=== PATIENT | female | born 1970 | race American Indian/Alaskan Native ===

== ENCOUNTER 2016-06-09 17:35 | Inpatient (IN) | payer OTHER ==
--- NOTE | 2016-06-09 18:02 | Emergency Department Report ---
Chief Complaint: Weakness Stated Complaint: SOB/WEAKNESS Time Seen by Provider: 06/09/16 17:57 - HPI History of Present Illness: Patient here complaining and that she is feeling bad for approximately one month. She says she saw her primary care doctor who told her to come to emergency room. She says she's been weak, dizziness, shortness of breath times one month. She says she's having tightness in her upper abdomen area. She says she has no appetite and she's been having vomiting and diarrhea. Patient reports that she lost 170 pounds in one year without trying. Has any urinary burning frequency or urgency. Denies any fever or chills. Patient with multiple medical problems please refer to summary sent from doctor's office. - ROS Review of Systems: All systems are negative unless stated in HPI above. - Exam Vital Signs: Vital Signs 06/09/16 17:36 Temperature 98.1 F Pulse Rate 140 H Respiratory 18 Rate Blood Pressure 136/92 O2 Sat by Pulse 99 Oximetry Physical Exam: General: This is a 45-year-old female who is in mild distress. She appears weak. CV: Tachycardic at 140. S1-S2. Mouth: This membrane and lips are dry. Lungs: Clear to auscultate bilaterally, no rhonchi wheezes or rales. MSE screening note: Focused history and physical exam performed. Due to findings the following was ordered:see [facility] Charge nurse Chris notified the patient needs to be in main ED as soon as possible per Dr. Michael ED Medical Decision Making - Medical Decision Making Medical decision making: Patient seen by provider in triage area. Appropriate protocol activated and patient to main ED to be seen by physician. ED Disposition for MSE Condition: Stable
[2016-06-09 18:52] LABS: Basophils % (Auto) 0.1 % (0.0-1.8); Eosinophils % (Auto) 0.1 % (0.0-4.3); Hematocrit 32.2 % (30.3-42.9); Hemoglobin 10.9 gm/dl (10.1-14.3); Mean Corpuscular HGB Conc 34 % (30-34); Mean Corpuscular Hemoglobin 37 pg (28-32); Mean Corpuscular Volume 109 fl (79-97); Platelet Count 323 K/mm3 (140-440); Red Blood Count 2.94 M/mm3 (3.65-5.03); Red Cell Distribution Width 14.4 % (13.2-15.2); White Blood Count 17.7 K/mm3 (4.5-11.0)
[2016-06-09 19:13] LABS: INR 1.22 (0.87-1.13)
--- NOTE | 2016-06-09 19:16 | Emergency Department Report ---
ED General Adult HPI - General Chief complaint: Weakness Stated complaint: SOB/WEAKNESS Time Seen by Provider: 06/09/16 17:57 Source: patient Mode of arrival: Ambulatory Limitations: No Limitations - History of Present Illness Initial comments: Patient is a 45-year-old female with history of alcohol abuse, depression, diabetes, hyperlipidemia, hypertension presenting today because of generalized weakness 1 month. Patient states that symptoms have been progressive, has been losing weight, has decreased appetite and occasional vomiting and diarrhea. Patient states her last drink was on Monday (5 days ago). Patient denies any recent changes in her medication and denies any suicidal thoughts or attempts to hurt herself by overmedicating. States she has not been drinking alcohol more than usual. No history of travel or having any seafood or IV drug use. Complains about exertional dyspnea, pruritus diffusely especially in the upper abdomen. Had one prior abdominal surgery which was a gastric bypass around 20 years ago. She saw her primary care doctor earlier this week who had called her and told her that based on results that she needs to come to be admitted to the hospital. Patient states she was not told what the abnormalities and the labs were. - Related Data Home Medications Medication Instructions Recorded Confirmed Last Taken AtorvaSTATin [Lipitor] 20 mg PO DAILY 06/09/16 06/09/16 06/06/16 Escitalopram Oxalate [Lexapro] 20 mg PO DAILY 06/09/16 06/09/16 06/06/16 Folic Acid [Folvite] 1 mg PO QDAY 06/09/16 06/09/16 06/06/16 Gabapentin [Neurontin] 100 mg PO Q8HR 06/09/16 06/09/16 06/06/16 LORazepam [Ativan] 0.5 mg PO TID PRN 06/09/16 06/09/16 06/06/16 Lisinopril [Zestril] 20 mg PO QDAY 06/09/16 06/09/16 06/06/16 Propranolol [Inderal] 10 mg PO BID 06/09/16 06/09/16 06/06/16 Venlafaxine Xr [Effexor Xr] 75 mg PO QDAY 06/09/16 06/09/16 06/06/16 busPIRone [Buspar] 10 mg PO TID 06/09/16 06/09/16 06/06/16 metFORMIN [Glucophage] 500 mg PO QDAY 06/09/16 06/09/16 06/06/16 Allergies Allergy/AdvReac Type Severity Reaction Status Date / Time No Known Allergies Allergy Verified 06/09/16 20:19 ED Review of Systems ROS: Stated complaint: SOB/WEAKNESS Other details as noted in HPI Constitutional: malaise, weakness Eyes: denies: eye pain ENT: denies: ear pain Respiratory: cough Cardiovascular: dyspnea on exertion. denies: chest pain Gastrointestinal: abdominal pain, nausea, vomiting, diarrhea Genitourinary: denies: dysuria Skin: denies: rash Neurological: denies: headache Psychiatric: denies: anxiety ED Past Medical Hx - Medications Home Medications: Home Medications Medication Instructions Recorded Confirmed Last Taken Type AtorvaSTATin [Lipitor] 20 mg PO DAILY 06/09/16 06/09/16 06/06/16 History Escitalopram Oxalate [Lexapro] 20 mg PO DAILY 06/09/16 06/09/16 06/06/16 History Folic Acid [Folvite] 1 mg PO QDAY 06/09/16 06/09/16 06/06/16 History Gabapentin [Neurontin] 100 mg PO Q8HR 06/09/16 06/09/16 06/06/16 History LORazepam [Ativan] 0.5 mg PO TID PRN 06/09/16 06/09/16 06/06/16 History Lisinopril [Zestril] 20 mg PO QDAY 06/09/16 06/09/16 06/06/16 History Propranolol [Inderal] 10 mg PO BID 06/09/16 06/09/16 06/06/16 History Venlafaxine Xr [Effexor Xr] 75 mg PO QDAY 06/09/16 06/09/16 06/06/16 History busPIRone [Buspar] 10 mg PO TID 06/09/16 06/09/16 06/06/16 History metFORMIN [Glucophage] 500 mg PO QDAY 06/09/16 06/09/16 06/06/16 History ED Physical Exam - General Limitations: No Limitations General appearance: alert - Head Head exam: Present: atraumatic - Eye Eye exam: Present: other (jaundice) - Cardiovascular Cardiovascular Exam: Present: regular rate, normal heart sounds - GI/Abdominal GI/Abdominal exam: Present: soft, other (upper quadrant mild tenderness, Mijares' s negative, no epigastric tenderness, no rebound, no guarding) - Neurological Exam Neurological exam: Present: alert, oriented X3. Absent: motor sensory deficit - Psychiatric Psychiatric exam: Present: flat affect - Skin Skin exam: Present: intact. Absent: cyanosis ED Course Vital Signs 06/09/16 06/09/16 06/09/16 17:36 18:57 18:59 Temperature 98.1 F Pulse Rate 140 H 132 H Respiratory 18 15 Rate Blood Pressure 136/92 122/83 O2 Sat by Pulse 99 96 100 Oximetry 06/09/16 06/09/16 19:00 19:40 Temperature Pulse Rate 133 H Respiratory 21 18 Rate Blood Pressure 129/85 O2 Sat by Pulse 100 100 Oximetry ED Medical Decision Making - Lab Data Result diagrams: 06/09/16 18:34 06/10/16 00:14 - Medical Decision Making IV, labs, CT of the abdomen and pelvis ordered. Labs show hyperbilirubinemia, hypophosphatemia, hypomagnesemia. CT scan does not show any obstructive process. It does suggest possible pancreatic head swallowing, no clear mass, patient does not have any abdominal pain so acute pancreatitis is unlikely. No signs of acute cholecystitis. We will admit the patient for the above abnormalities Critical care attestation.: If time is entered above; I have spent that time in minutes in the direct care of this critically ill patient, excluding procedure time. ED Disposition Clinical Impression: Hypophosphatemia, Hypomagnesemia, Hyperbilirubinemia Disposition: OP ADMITTED IP TO THIS HOSP Is pt being admited?: Yes Condition: Serious Referrals: PRIMARY CARE, [Primary Care Provider] - 3-5 Days Time of Disposition: 01:08 (Transitioned care to Dr. Barahona)
[2016-06-09 19:56] LABS: Alanine Aminotransferase 43 units/L (7-56); Albumin 3.6 g/dL (3.9-5); Albumin/Globulin Ratio 0.9 %; Alkaline Phosphatase 213 units/L (35-129); Anion Gap 27 mmol/L; Bilirubin,Total 9.2 mg/dL (0.1-1.2); Blood Urea Nitrogen 24 mg/dL (7-17); Calcium 9.2 mg/dL (8.4-10.2); Carbon Dioxide 23 mmol/L (22-30); Chloride 85.5 mmol/L (98-107); Glucose 111 mg/dL (65-100); Lactate Dehydrogenase 500 units/L (91-180); Magnesium 1.6 mg/dL (1.7-2.3); Sodium 132 mmol/L (137-145); Total Protein 7.8 g/dL (6.3-8.2)
[2016-06-09 19:58] LABS: Phosphorous 0.8 mg/dL (2.5-4.5)
[2016-06-09 20:06] LABS: Creatine Kinase 43 units/L (30-135)
--- NOTE | 2016-06-09 20:17 | Admit Criteria Form ---
Admission Criteria Documentation: GENERAL ADMISSION CRITERIA (Place 'X' for any and all applicable criteria): Admission is indicated for ANY ONE of the following: [ ]I. Hemodynamic instability as indicated by ANY ONE of the following(1)(2) (3)(4)(5): [ ]a) Vital sign abnormality not readily corrected by appropriate treatment within 12 to 24 hours indicated by ANY ONE of the following: [ ]i) Hypotension [ ]ii) Symptomatic Tachycardia unresponsive to treatment (eg , analgesia, fluids, sedation as indicated) [ ]iii) Orthostatic vital sign changes unresponsive to treatment (eg, fluids) [ ]b) Vital sign abnormality that is severe indicated by ANY ONE of the following: [ ]i) Inadequate perfusion indicated by ANY ONE of the following: [ ]1) Lactic acidosis (greater than 2 mmol/L) [ ]2) New abnormal capillary refill (greater than 3 seconds) [ ]3) Other metabolic acidosis (arterial pH less than 7.35) not otherwise explained [ ]4) Reduced urine output [ ]5) Altered mental status [ ]6) Myocardial Ischemia [ ]v) Mean arterial pressure[A] less than 60 mm Hg [ ]vi) Mean arterial pressure[A] less than 70 mm Hg after 30 minutes of appropriate treatment (eg, fluid resuscitation) [ ]vii) IV inotropic or vasopressor medication required to maintain adequate blood pressure or perfusion [ ]viii) Sustained heart rate greater than 120 beats per minute in adult or child 6 years or older[B]] [ ]II. Hypertension requiring inpatient treatment as indicated by ANY ONE of the following(6)(7)(8): [ ]a) SBP greater than 220 mm Hg or DBP greater than 120 mm Hg despite treatment [ ]b) SBP greater than 140 mm Hg or DBP greater than 100 mm Hg with evidence of acute end organ damage as indicated by ANY ONE of the following: [ ]i) Encephalopathy [ ]ii) Acute renal failure as indicated by new onset of ANY ONE of the following(9)(10)(11)(12)(13): [ ]1) A 3-fold rise in serum creatinine from baseline [ ]2) Serum creatinine greater than 4 mg/dL ( 354 micromoles/L) with acute rise greater than 0.5 mg/dL (44.2 micromoles/L) [ ]3) Reduction of more than 75% in estimated glomerular filtration rate from baseline [ ]4) Estimated glomerular filtration rate less than 35 mL/min/1.73m2 (0.59 mL/sec/1.73m2) in child up to 18 years of age [ ]5) Cessation of urine output indicated by ALL of the following: [ ]A. Adequate volume status [ ]B. Inadequate urine output as indicated by ANY ONE of the following: [ ]a. Urine output less than 0.3 mL/kg/hr for 24 hours [ ]b. Anuria (urine output less than 0.1 mL/kg/hr) for 12 hours [ ]iii) Aortic dissection [ ]iv) Myocardial ischemia [ ]v) Left ventricular heart failure [ ]vi) Retinal hemorrhage [ ]vii) Other significant finding [ ]c) Hypertension in child requiring inpatient treatment as indicated by ALL of the following(14)(15)(16): [ ]i) Outpatient treatment not effective, not available, or not appropriate [ ]ii) SBP or DBP greater than 95th percentile for age [ ]iii) Evidence of acute end organ damage as indicated by ANY ONE of the following: [ ]1) Altered mental status [ ]2) Acute renal failure as indicated by new onset of ANY ONE of the following(9)(10)(11)(12)(13): [ ]A. A 3-fold rise in serum creatinine from baseline [ ]B. Serum creatinine greater than 4 mg/dL (354 micromoles/L) with acute rise greater than 0.5 mg/dL (44.2 micromoles/L) [ ]C. Reduction of more than 75% in estimated glomerular filtration rate from baseline [ ]D. Estimated glomerular filtration rate less than 35 mL/min/1.73m2 (0.59 mL/sec/1.73m2)in child up to 18 years of age [ ]E. Cessation of urine output indicated by ALL of the following: [ ]a. Adequate volume status [ ]b. Inadequate urine output as indicated by ANY ONE of the following: [ ]1) Urine output less than 0.3 mL/kg/hr for 24 hours [ ]2) Anuria (urine output less than 0.1 mL/kg/hr) for 12 hours [ ]3) Severe headache [ ]4) Visual disturbance [ ]5) Retinal hemorrhage [ ]6) Other significant finding [ ]III. Acute cardiac or peripheral ischemia as indicated by ANY ONE of the following: [ ]a) Acute coronary syndrome(17)(18) [ ]b) Acute peripheral ischemia (eg, pulseless, cool, mottled, or cyanotic extremity)(19) [ ]IV. Cardiac arrhythmias or findings of immediate concern indicated by ANY ONE of the following(20)(21): [ ]a) Heart rhythms that are inherently dangerous or unstable indicated by ANY ONE of the following(22)(23)(24): [ ]i) Resuscitated ventricular fibrillation or cardiac arrest [ ]ii) Ventricular escape rhythm [ ]iii) Sustained ventricular tachycardia (30 seconds or more of ventricular rhythm at greater than 100 beats per minute) [ ]iv) Nonsustained ventricular tachycardia and ANY ONE of the following: [ ]1) Suspected cardiac ischemia as cause or consequence of ventricular tachycardia [ ]2) In setting of acute myocarditis [ ]b) Unstable cardiac conduction defects indicated by ANY ONE of the following(24)(25)(26): [ ]i) Type II second-degree atrioventricular block [ ]ii) Third-degree atrioventricular block [ ]iii) New-onset left bundle branch block with suspected myocardial ischemia [ ]c) Any heart rhythm and ANY ONE of the following(22)(23)(27)(28)( 29): [ ] i) Continuous long-term ECG monitoring needed (eg, initiation of drug requiring monitoring for more than 24 hours) [ ] ii) Patient has automatic implanted cardioverter defibrillator that is repeatedly firing, malfunctioning, or in need of immediate adjustment of settings beyond the scope of ambulatory or observation care. [ ]d) Heart rhythms of concern due to ANY ONE of the following: [ ]i) Hypotension [ ]ii) Respiratory distress [ ]iii) Association with other significant symptoms (eg, bradycardia with syncope or ongoing dizziness, supraventricular tachycardia with chest pain) (27)(28) (30) [ ] V. Severe heart failure as indicated by ANY ONE of the following ( 31)(32): [ ]a) Respiratory distress [ ]b) Hypotension [ ]c) Anasarca (refractory to outpatient therapy) [ ]d) Cardiac arrhythmias of immediate concern [ ]e) Myocardial ischemia [ ]. Respiratory abnormalities, including ANY ONE of the following(33)(34) (35)(36): [ ]a) Respiratory rate greater than 30 breaths per minute unresponsive to treatment [A] [ ]b) New saturation of arterial oxygen less than 90% [ ]c) New partial pressure of carbon dioxide greater than 44 mm Hg ( 5.9 kPa) [ ]d) Supplemental oxygen or respiratory treatments needed that are new or not performable at other levels of care [ ]e) New-onset cyanosis [ ]f) Inability to protect airway [ ]g) Chronic lung disease with severe deterioration (not responsive to emergency and observation care treatment as appropriate) as indicated by ANY ONE of the following(34)(36 ): [ ]i) SaO2 5% below baseline in patient with chronic hypoxemia [ ]ii) New requirement for supplemental oxygen to keep SaO2 at baseline or acceptable level [ ]iii) Required supplemental oxygen performable only in acute inpatient setting [ ]iv) Severe airflow or ventilation abnormalities [ ]v) Previously mobile patient unable to walk between rooms [ ]vi Inability to eat or sleep due to dyspnea [ ]vii) Rapid rate of exacerbation onset [ ]viii) Altered mental status ]VII. Severe airflow or ventilation abnormalities (not responsive to emergency and observation care treatment as appropriate) as indicated by ANY ONE of the following(33)(34)(35)(37): [ ]a) PCO2 greater than 42 mm Hg (5.6 kPa) and pH less than 7.35 (new ) [ ]b) Documented PCO2 increased more than 5 mm Hg (0.7 kPa) from disease baseline [ ]c) Airflow measurements [B] less than 60% of previous best or predicted (eg, peak expiratory flow rate less than 300 L/minute) despite intensive emergent treatment [C] [ ]d) Required respiratory treatments that are performable only in acute inpatient setting [ ]VIII. Impending or actual respiratory arrest ( Also use Respiratory Failure GRG for severe respiratory disease and long-term mechanical ventilation patients) [ ]IX. Neurologic abnormalities, including ANY ONE of the following: [ ]a) New findings that suggest ANY ONE of the following: [ ]i) [employer]UC[employer] infection(38) [ ]ii) Cerebral bleeding, ischemia, or vasospasm(39)(40) [ ]iii) Increased intracranial pressure, hydrocephalus, or cerebral edema(41)(42)(43) [ ]iv) Spinal cord injury(44) [ ]b) Uncontrolled seizures(45) [ ]c) New-onset coma (eg, [place] coma scale score less than 9) or unexplained abnormal mental status (eg, [place] coma scale score less than 14) [D](41)(46)(47) [ ]X. New-onset severe neurologic findings requiring inpatient care; examples include(42)(48)(49): [ ]a) Papilledema [ ]b) Cerebral edema [ ]c) Mass effect on CT scan [ ]XI. Suspected acute intra-abdominal process with peritoneal signs, abdominal mass, or similar findings (50)(51)(52) [ ]XII. Severe physiologic disorder remaining after emergency or observation level care (as appropriate) as indicated by ANY ONE of the following (53): [ ]a) Significant dehydration [ ]b) Diabetic ketoacidosis [ ]c) Hyperglycemic hyperosmolar state (eg, osmolality greater than 320 mOsm/kg (mmol/kg) [ ]d) Hypoglycemia [ ]e) Other (new) acid-base disorder with pH less than 7.35 or greater than 7.5(54) [ ]f) Thyroid storm (55) [ ]g) Myxedema coma (55) [ ]XIII. Abdominal abnormalities with ANY ONE of the following(56)(57): [ ]a) Absent bowel sounds with complete ileus [ ]b) Signs of intestinal obstruction or peritonitis [E] [ ]c) Nausea and vomiting that cannot be controlled with outpatient or observation care [ ]XIV. Acute renal failure as indicated by new onset of ANY ONE of the following(9)(10)(11)(12)(13): [ ]a) A 3-fold rise in serum creatinine from baseline [ ]b) Serum creatinine greater than 4 mg/dL (354 micromoles/L) with acute rise greater than 0.5 mg/dL (44.2 micromoles/L) [ ]c) Reduction of more than 75% in estimated glomerular filtration rate from baseline [ ]d) Estimated glomerular filtration rate less than 35 mL/min/ 1.73m2 (0.59 mL/sec/1.73m2) in child up to 18 years of age [ ]e) Cessation of urine output indicated by ALL of the following: [ ]i) Adequate volume status [ ]ii) Inadequate urine output as indicated by ANY ONE of the following: [ ]1) Urine output less than 0.3 mL/kg/hr for 24 hours [ ]2) Anuria (urine output less than 0.1 mL/kg/hr) for 12 hours [ ]XV. Significant uremic complications as indicated by ANY ONE of the following(58)(59)(60): [ ]a) Outpatient therapy is ineffective or not feasible for ANY ONE of the following: [ ]i) Severe heart failure [ ]ii) Severehypertension [ ]iii) Pleural effusion [ ]iv) Pericarditis or pericardial effusion [ ]b) Cardiac arrhythmias of immediate concern [ ]c) Intractable nausea or vomiting [ ]d) Recurrent seizures [ ]e) Encephalopathy [ ]f) Bleeding abnormalities (eg, platelet dysfunction) with active (eg, gastrointestinal) bleeding [ ]g) Dialysis indicated before long-term access or ambulatory arrangements can be made [ ]h) Significant metabolic or electrolyte abnormalities (eg, severe acidosis or hyperkalemia) [ ]XVI. High fever or other high-risk infection situation as indicated by ANY ONE of the following(61)(62)(63)(64): [ ]a) Outpatient and observation care antimicrobial treatment unavailable, not effective, or not appropriate [ ]b) Documented bacteremia [ ]c) Temperature greater than 40.5 degrees C (104.9 degrees F) ( oral) [ ]d) Temperature greater than 39.5 degrees C (103.1 degrees F) ( oral) or less than 36 degrees C (96.8 degrees F) (rectal) that does not respond to e treatment and observation care [ ] XVII. Temperature less than 95 degrees F (35 degrees C)(rectal)(65) [ ] XVIII. Severe nutritional abnormalities as indicated by ALL of the following (66)(67): [ ]a) Inability to tolerate or establish sufficient oral or other enteral nutrition in outpatient setting [ ]b) Parenteral nutrition regimen need that must be implemented on inpatient basis [X ] XIX. Severe electrolyte abnormalities indicated by ALL of the following(68 )(69)(70): [X ]a) Electrolytes and associated findings are not as expected for patient baseline or acceptable treatment effects. [ X]b) Severe abnormalities indicated by ANY ONE of the following: [X ]i) Sodium less than 130 mEq/L (mmol/L) (new) [ ]ii)Sodium less than 135 mEq/L (mmol/L) with ANY ONE of the following: [ ]1) Uncorrectable (to near normal or chronic baseline) after trial of outpatient and emergency treatment [ ]2) Altered mental status [ ]3) Seizures [ ]4) Severe medical etiology requiring inpatient management (eg, heart failure, hypovolemia) [ ]iii) Sodium greater than 155 mEq/L (mmol/L) [ ]iv) Sodium greater than 150 mEq/L (mmol/L) with ANY ONE of the following: [ ]1) Uncorrectable (to near normal or chronic baseline) with outpatient and emergency treatment [ ]2) Altered mental status [ ]3) Seizures [ ]4) Severe medical etiology (eg, hypovolemia, diabetes insipidus) [ ]v) Potassium less than 2.5 mEq/L (mmol/L) despite outpatient and emergency treatment [ ]vi) Potassium less than 3 mEq/L (mmol/L) with ANY ONE of the following: [ ]1) Weakness [ ]2) Cardiac abnormality (eg, arrhythmia, conduction disturbance) [ ]3) Cardiac ischemia [ ]4) Ileus [ ]5) Ongoing medical cause requiring inpatient management (eg, acute renal wasting or SIADH) [ ]6) Other severe symptoms [ ]vii) Potassium greater than 6.5 mEq/L (mmol/L) [ ]viii) Potassium greater than 5 mEq/L (mmol/L) with ANY ONE of the following: [ ]1) Uncorrectable (to near normal or chronic baseline) with outpatient and emergency treatment [ ]2) Severe ECG findings [F] [ ]3) Acute worsening of renal failure (creatinine greater than 2.5 mg/dL (221 micromoles/L) or significant elevation for age and size) [ ]4) Severe weakness [ ]5) Severe medical etiology (eg, hemolysis, infection, drug overdose) [ ]ix) Calcium less than 7 mg/dL (1.75 mmol/L) despite outpatient and emergency treatment (72) [ ]x) Calcium less than 8 mg/dL (2 mmol/L) with significant symptoms or findings; examples include(72): [ ]1) Altered mental status [ ]2) Muscle spasms [ ]3) Seizures [ ]4) Breathing difficulty [ ]5) Cardiac abnormality (eg, arrhythmia or conduction disturbance) [ ]xi) Calcium greater than 14 mg/dL (3.5 mmol/L)(72) [ ]xii) Calcium greater than 12 mg/dL (3 mmol/L) with ANY ONE of the following(72): [ ]1) Uncorrectable (to near normal or chronic baseline) with outpatient and emergency treatment [ ]2) Significant dehydration or hypovolemia as indicated by ALL of the following(70)(73)(74): [ ]A. Not resolved with initial treatments [ ]B. Clinically significant dehydration as indicated by ANY ONE of the following: [ ]a. Vomiting refractory to outpatient treatment (ie, precluding oral rehydration) [ ]b. Inability to drink [ ]c. Hypernatremia or other electrolyte abnormality unable to be corrected with outpatient and emergency treatment [ ]d. Failure to remain hydrated with outpatient therapy [ ]e. Reduced urine output [ ]f. Hypotension [ ]g. Serious cause for dehydration requiring acute hospitalization (eg, bowel obstruction, increased intracranial pressure, infectious cause) [ ]h. Child with ANY ONE of the following(75): [ ]1) Severe abdominal tenderness [ ]2) Adequate care not available at home [ ]3) Severe dehydration ( greater than 9% loss of body weight) [ ]4) Significant symptoms or findings; examples include: [ ]A. Altered mental status [ ]B. Cardiac abnormality (eg, arrhythmia, conduction disturbance) [ ]C. Malignant etiology requiring inpatient treatment [X ]xiii) Phosphorus less than 1 mg/dL (0.32 mmol/L) [ ]xiv) Phosphorus less than 1.5 mg/dL (0.48 mmol/L) with ANY ONE of the following: [ ]1) Patient unresponsive to outpatient and emergency treatment [ ]2) Significant symptoms or findings; examples include: [ ]A. Weakness [ ]B. Altered mental status [ ]C. Breathing difficulty [ ]D. Seizures [ ]E. Rhabdomyolysis [ ]xv) Phosphorus greater than 10 mg/dL (3.2 mmol/L) [ ]xvi) Phosphorus greater than 4.5 mg/dL (1.45 mmol/L) (new) with ANY ONE of the following: [ ]1) Severe medical etiology (eg, crush injury, acute renal failure) [ ]2) Associated hypocalcemia with significant findings; examples include: [ ]A. Neurologic symptoms [ ]B. Altered mental status [ ]C. Muscle spasms [ ]D. Seizures [ ]E. Breathing difficulty [ ]F. Cardiac abnormality (eg, arrhythmia, conduction disturbance) [ ]xvii) Magnesium less than 1 mg/dL (0.41 mmol/L) [ ]xviii) Magnesium less than 1.5 mg/dL (0.62 mmol/L) with ANY ONE of the following: [ ]1) Patient unresponsive to outpatient and emergency treatment [ ]2) Associated hypocalcemia with significant findings; examples include: [ ]A. Altered mental status [ ]B. Muscle spasms [ ]C. Seizures [ ]D. Breathing difficulty [ ]E. Cardiac abnormality (eg, arrhythmia , conduction disturbance) [ ]3) Associated hypokalemia (potassium less than 3 mEq/L (mmol/L)) with risk of arrhythmia [ ]xix) Magnesium greater than 4 mEq/L (2 mmol/L) [ ]xx) Magnesium greater than 2.5 mEq/L (1.25 mmol/L) with significant symptoms or findings; examples include: [ ]1) Weakness [ ]2) Altered mental status [ ]3) Cardiac abnormality (eg, arrhythmia, conduction disturbance) [ ]4) Breathing difficulty [ ]5) Severe medical etiology (eg, renal failure, hypovolemia) [ ]xxi) Uric acid greater than 20 mg/dL (1190 micromoles/L)(76) [ ]xxii) Uric acid greater than 8 mg/dL (476 micromoles/L) with significant symptoms or findings of tumor lysis syndrome; examples include(76): [ ]1) Creatinine greater than 1.5 times upper limit of normal [ ]2) Cardiac abnormality (eg, arrhythmia, conduction disturbance) [ ]3) Seizure [ ]XX. Acute blood loss causing significant abnormality as indicated by ANY ONE of the following(77)(78): [ ]a) Hemoglobin less than 10 g/dL (100 g/L) (not baseline) [ ]b) Hematocrit less than 30% (0.30) (not baseline) [ ]c) Repeat hematocrit decreased more than 2% (0.02) [ ]d) Uncontrolled bleeding [ ]XXI. Severe anemia indicated by ANY ONE of the following(78)(79): [ ]a) Altered mental status [ ]b) Chest pain [ ]c) Exertional dyspnea [ ]d) Syncope [ ]e) Other findings suggesting inadequate perfusion [ ]f) Treatment with transfusion or volume replacement is ineffective at resolving ANY ONE of the following [G]: [ ]i) Tachycardia for age [ ]ii) Orthostatic vital sign changes as indicated by ANY ONE of the following(80): [ ]1) Fall in SBP of 20 mm Hg or more 1 to 3 minutes after patient sits or stands from recumbent position [ ]2) Fall in DBP of 10 mm Hg or more 1 to 3 minutes after patient sits or stands from recumbent position [ ]XXII. High-risk low platelet count as indicated by ANY ONE of the following( 81)(82): [ ]a) Severe or life-threatening bleeding (eg, intracranial, major gastrointestinal, or extensive mucosal bleeding), with any reduced platelet count [ ]b) Platelet count less than 20,000/mm3 (20 x109/L) with any active bleeding [ ]c) Platelet count less than 10,000/mm3 (10 x109/L) with minor purpura or petechiae [ ]d) Platelet count less than 5000/mm3 (5 x109/L) [ ]e) Low platelet count with hemolytic anemia [ ]XXIII. Disseminated intravascular coagulation(77)(83) [ ]XXIV. Severe adverse drug or systemic toxin reaction requiring inpatient treatment; examples include(84)(85): [ ]a) Serotonin syndrome(86) [ ]b) Neuroleptic malignant syndrome(86) [ ]c) Cholinergic syndrome with severe symptoms (eg, bronchorrhea, weakness, mental status changes, seizures) [ ]d) Sympathetic syndrome with severe symptoms (eg, seizures, mental status changes, cardiac dysrhythmias) [ ]e) Anticholinergic syndrome [ ]XXV. Severe pain requiring acute inpatient management as indicated by ALL of the following (87)(88)(89): [ ]a) Continuous or frequent (eg, every 2 to 4 hours) parenteral analgesics required [H] [ ]b) Rapid improvement expected from treatment or acute intervention (eg, surgery, anesthesia procedure) [ ]XXVI.Severe behavioral health issues judged unmanageable at a lower level of care (eg, residential) in a patient who is ANY ONE of the following(91) [ ]a) Acutely suicidal [ ]b) A danger to self (eg, self-mutilating or suicidal behavior) [ ]c) A danger to others (eg, assaultive or homicidal behavior) [ ]d) Incapacitated because of grave disability (eg, inability to provide for self at lower level of care) (92) [ ]XXVII. Inpatient monitoring needed; examples include(1)(3)(87)(93)(94)(95)(96 ): [ ]a) Vital signs, neurologic signs, or vascular checks more frequently than every 4 hours [ ]b) Cardiac or respiratory monitoring beyond the scope (eg, over 24 hours) of observation care [ ]c) Pulmonary artery catheter monitoring [ ]d) Suspected compartment syndrome(97) (98) [ ]e) Cerebral bleeding, hydrocephalus, or vasospasm monitoring [ ]f) Increased intracranial pressure or cerebral edema monitoring [ ]g) monitoring [ ]XXVIII. Treatment requiring inpatient care; examples include: [ ]a) IV fluid to replace significant ongoing losses (greater than 3 L/m2 per day)(53) [ ]b) High concentration oxygen (greater than 40%)(33)(99)(100) [ ]c) Frequent respiratory therapy (more frequently than every 4 hours) to maintain airflow rates greater than 60% of baseline(33)(99)(100) [ ]d) Epidural analgesia(87) [ ]e) IV anticoagulation, vasoactive, or antiarrhythmic medication(19 )(23) [ ]f) Acute thrombolytics (generally require 24 hours of observation )(101)(102) [ ]XXIX. Emergency procedures needed; examples include: [ ]a) Emergency inpatient surgery [ ]b) Temporary pacemaker placement(103) [ ]c) Chest tube placement with active evacuation (eg, suction, drainage)(104) [ ]d) Emergent cardioversion(105) [ ]e) Emergent cardiac or vascular procedures (eg, cardiac catheterization, angioplasty) (17)(18) [ ]f) Emergent dialysis access placement and institution(10)(106) [ ]g) Emergent pericardiocentesis(107) [ ]h) Emergent plasmapheresis or leukapheresis(83) [ ]i) Emergent tracheostomy The original [employer] content created by [employer] has been revised. The portions of the content which have been revised are identified through the use of italic text or in bold, and [employer] has neither reviewed nor approved the modified material. All other unmodified content is copyright [employer]. Please see references footnoted in the original [employer] edition 2016 Admission Criteria Met: Yes
[2016-06-09] MEDS ORDERED: KPHOS 30 MMOL in NACL 0.9% 500 ML 500 ML IV ONE (20:18)
[2016-06-09 20:23] LABS: Creatine Kinase MB < 1.0 ng/mL (0.0-4.0)
[2016-06-09] MEDS ORDERED: NACL 0.9% 1000 ML IV STA (20:53)
[2016-06-09] MEDS ORDERED: NACL ONE (21:42)
--- NOTE | 2016-06-10 00:24 | Cat Scan Report ---
FINAL REPORT PROCEDURE: CT ABDOMEN PELVIS W CON TECHNIQUE: Computerized axial tomography of the abdomen and pelvis was performed after the IV injection of iodinated nonionic contrast. HISTORY: ro mass for obstructive jaundice COMPARISON: No prior studies are available for comparison. FINDINGS: Visualized lower thorax: No significant abnormality. Liver: Liver is enlarged and fatty. There is no discrete mass.. Spleen: Normal size and attenuation. Gallbladder and biliary system: There is no biliary ductal dilatation or evidence of biliary obstruction. There may be sludge in the gallbladder. There is no evidence of cholecystitis. There are no gallstones.. Pancreas: There is peripancreatic edema which could indicate early pancreatitis. There are adjacent reactive lymph nodes. There is no mass or pseudocyst. Correlation with amylase and lipase levels may be helpful. There is a 2 centimeter area of vague decreased density in the pancreatic head which is felt to be edema. Possibility of mass is considered unlikely.. Adrenals: Normal. Kidneys: Normal. GI tract: There has been gastric bypass surgery. There is no bowel obstruction, colitis or enteritis. The appendix is normal.. Lymph nodes and mesentery: Normal. Vasculature: Normal. Bladder: Normal. Reproductive organs: Uterus and ovaries are within normal limits.. Peritoneum: There is no ascites, free air, abscess or adenopathy.. Musculoskeletal structures: No significant abnormality. Other: None. IMPRESSION: Liver is enlarged and fatty. There is no discrete mass.. There is no biliary ductal dilatation or evidence of biliary obstruction. There may be sludge in the gallbladder. There is no evidence of cholecystitis. There is a 2 centimeter area of vague decreased density in the pancreatic head which is felt to be edema. Possibility of mass is considered unlikely.. There is peripancreatic edema which could indicate early pancreatitis. There are adjacent reactive lymph nodes. There is no mass or pseudocyst. Correlation with amylase and lipase levels may be helpful.. There has been gastric bypass surgery. There is no bowel obstruction, colitis or enteritis. The appendix is normal.. There is no ascites, free air, abscess or adenopathy..
[2016-06-10 00:34] LABS: Bacteria,Urine 4+ /HPF (Negative); Bilirubin,Urine SM (Negative); Blood,Urine NEG (Negative); Ketones,Urine TR mg/dL (Negative); Leukocyte Esterase,Urine SM (Negative); Mucus,Urine 3+ /HPF; Nitrite,Urine NEG (Negative)
[2016-06-10] MEDS ORDERED: MAGNESIUM SULFATE 2GM/50ML 50 ML IV ONE ×2 (01:02→11:00)
[2016-06-10 01:05] LABS: BUN/Creatinine Ratio 38.33; Bilirubin,Direct 5.4 mg/dL (0-0.2); Bilirubin,Indirect 2.8 mg/dL; Bilirubin,Total 8.2 mg/dL (0.1-1.2); Blood Urea Nitrogen 23 mg/dL (7-17); Calcium 8.5 mg/dL (8.4-10.2); Carbon Dioxide 24 mmol/L (22-30); Glucose 95 mg/dL (65-100); Sodium 127 mmol/L (137-145)
[2016-06-10 01:11] LABS: Anion Gap 22 mmol/L
[2016-06-10 01:16] LABS: Potassium 2.9 mmol/L (3.6-5.0)
[2016-06-10] MEDS ORDERED: ATIVAN ONE (02:32)
--- NOTE | 2016-06-10 02:36 | Ultrasound Report ---
FINAL REPORT PROCEDURE: US ABDOMEN LIMITED TECHNIQUE: Real-time sonography in multiple planes of the gallbladder fossa and CBD with imaging of the adjacent liver, pancreas, and right kidney was performed with image documentation. CPT 61984 HISTORY: hyperbilirubinemia COMPARISON: No prior studies are available for comparison. FINDINGS: Liver: There is fatty infiltration of the liver.. Gallbladder: There is an echogenic mass in the gallbladder suggesting stone or sludge. There is no wall thickening or pericholecystic fluid.. Intrahepatic bile ducts: Normal . Extrahepatic bile ducts: Normal . Pancreas: Pancreas is obscured by bowel gas.. Right kidney: Normal echotexture. No focal renal mass, calculus, or hydronephrosis. Other: No free fluid. IMPRESSION: There is fatty infiltration of the liver.. There is an echogenic mass in the gallbladder suggesting stone or sludge. There is no wall thickening or pericholecystic fluid.. There is no demonstrated evidence of cholecystitis. There is no biliary ductal dilatation. Pancreas is obscured by bowel gas..
[2016-06-10] MEDS ORDERED: ATIVAN IV ONE (02:43)
[2016-06-10] MEDS ORDERED: ATIVAN IV PRN ×2 (03:27)
--- NOTE | 2016-06-10 03:31 | History and Physical Report ---
History of Present Illness Date of examination: 06/10/16 History of present illness: 45-year-old woman history of hypertension, diabetes, depression, anxiety, alcohol abuse comes emergency room with complaints of abdominal pain. Pain is in the right upper, mid and lower abdomen which she describes as a hurting pain , intensity, 5/10, no radiation, better with pain medication in the emergency room, cannot identify exacerbating factor. She admits to nausea vomiting, shortness of breath, generalized weakness. She states she's been experiencing generalized weakness for one month. Her last drink was one week ago Patient denies chest pain, palpitation, cough, hematochezia, dysuria, frequency, focal weakness, dysarthria, fever chills, polydipsia polyuria, hot or cold intolerance, easy bruisability, or rash or bleeding from mucosal membrane, rhinorrhea, epistaxis, earache, tinnitus, blurry vision, eye discharge , anxiety, depression. Other review of systems negative PAST SURGICAL HISTORY: Gastric bypass SOCIAL HISTORY: Drinks 2 glasses of vodka with orange juice a day, no tobacco or drugs FAMILY HISTORY: Hypertension Medications and Allergies Allergies Allergy/AdvReac Type Severity Reaction Status Date / Time No Known Allergies Allergy Verified 06/09/16 20:19 Home Medications Medication Instructions Recorded Confirmed Last Taken Type AtorvaSTATin [Lipitor] 20 mg PO DAILY 06/09/16 06/09/16 06/06/16 History Escitalopram Oxalate [Lexapro] 20 mg PO DAILY 06/09/16 06/09/16 06/06/16 History Folic Acid [Folvite] 1 mg PO QDAY 06/09/16 06/09/16 06/06/16 History Gabapentin [Neurontin] 100 mg PO Q8HR 06/09/16 06/09/16 06/06/16 History LORazepam [Ativan] 0.5 mg PO TID PRN 06/09/16 06/09/16 06/06/16 History Lisinopril [Zestril TAB] 20 mg PO QDAY 06/09/16 06/09/16 06/06/16 History Propranolol [Inderal] 10 mg PO BID 06/09/16 06/09/16 06/06/16 History Venlafaxine Xr [Effexor XR] 75 mg PO QDAY 06/09/16 06/09/16 06/06/16 History busPIRone [Buspar] 10 mg PO TID 06/09/16 06/09/16 06/06/16 History metFORMIN [Glucophage] 500 mg PO QDAY 06/09/16 06/09/16 06/06/16 History HYDROcodone/APAP 5-325 [[place] 1 each PO Q8H PRN #15 tablet 06/12/16 Unknown Rx 5/325] Active Meds: Active Medications Ceftriaxone Sodium (Rocephin/Ns 1 Gm/50 Ml) 50 mls @ 100 mls/hr IV Q24HR MARLEE Lorazepam (Ativan) 2 mg IV Q1HR PRN PRN Reason: [facility]-Ar 8 Lorazepam (Ativan) 4 mg IV Q1HR PRN PRN Reason: [facility]-Ar 16 Exam - Physical Exam Narrative exam: Gen. appearance: Patient lying in bed, no apparent distress HEENT: Normocephalic, atraumatic, pupils equally round and reactive to light, extraocular movement intact, and positive sclericterus,. No JVD or thyromegaly or nodule,neck supple, no carotid bruit ,mucous membranes moist, no exudate or erythema Heart: S1, S2, regular rate and rhythm Lungs: Clear to auscultation bilaterally, breathing comfortable Abdomen: Positive bowel sounds, nontender, nondistended, no organomegaly Extremity: No edema, cyanosis, clubbing Skin: No rash, nodules, warm, dry Neuro: Oriented 3, cranial nerves II-12 intact, speech is fluent, motor and sensory intact - Constitutional Vitals: Temp Pulse Resp BP Pulse Ox 98.1 F 118 H 16 111/66 100 06/09/16 17:36 06/10/16 01:00 06/10/16 01:00 06/10/16 01:00 06/10/16 01:00 Results - Labs CBC & Chem 7: 06/11/16 05:11 06/12/16 07:12 Labs: Abnormal lab results 06/09/16 06/09/16 06/09/16 Range/Units 00:14 18:34 18:34 WBC 17.7 H (4.5-11.0) K/mm3 RBC 2.94 L (3.65-5.03) M/mm3 MCV 109 H (79-97) fl MCH 37 H (28-32) pg [place] % (Auto) 10.6 H (0.0-7.3) % [place] # 1.9 H (0.0-0.8) K/mm3 Seg Neutrophils % 74.7 H (40.0-70.0) % Seg Neutrophils # 13.2 H (1.8-7.7) K/mm3 PT 15.3 H (12.2-14.9) Sec. INR 1.22 H (0.87-1.13) Sodium (137-145) mmol/L Potassium (3.6-5.0) mmol/L Chloride (98-107) mmol/L BUN (7-17) mg/dL Creatinine (0.7-1.2) mg/dL Glucose (65-100) mg/dL Phosphorus (2.5-4.5) mg/dL Magnesium (1.7-2.3) mg/dL Total Bilirubin (0.1-1.2) mg/dL Direct Bilirubin (0-0.2) mg/dL AST (5-40) units/L Alkaline Phosphatase (35-129) units/L Lactate Dehydrogenase (91-180) units/L Albumin (3.9-5) g/dL Lipase 277 H (13-60) units/L Urine WBC (Auto) (0.0-6.0) /HPF Salicylates (2.8-20.0) mg/dL 06/09/16 06/09/16 06/09/16 Range/Units 18:37 19:29 Unknown WBC (4.5-11.0) K/mm3 RBC (3.65-5.03) M/mm3 MCV (79-97) fl MCH (28-32) pg [place] % (Auto) (0.0-7.3) % [place] # (0.0-0.8) K/mm3 Seg Neutrophils % (40.0-70.0) % Seg Neutrophils # (1.8-7.7) K/mm3 PT (12.2-14.9) Sec. INR (0.87-1.13) Sodium (137-145) mmol/L Potassium (3.6-5.0) mmol/L Chloride (98-107) mmol/L BUN 24 H (7-17) mg/dL Creatinine (0.7-1.2) mg/dL Glucose 111 H (65-100) mg/dL Phosphorus 0.8 L* (2.5-4.5) mg/dL Magnesium 1.6 L (1.7-2.3) mg/dL Total Bilirubin 9.2 H (0.1-1.2) mg/dL Direct Bilirubin (0-0.2) mg/dL AST 151 H (5-40) units/L Alkaline Phosphatase 213 H (35-129) units/L Lactate Dehydrogenase 500 H (91-180) units/L Albumin 3.6 L (3.9-5) g/dL Lipase (13-60) units/L Urine WBC (Auto) 14.0 H (0.0-6.0) /HPF Salicylates < 0.3 L (2.8-20.0) mg/dL 06/10/16 Range/Units 00:14 WBC (4.5-11.0) K/mm3 RBC (3.65-5.03) M/mm3 MCV (79-97) fl MCH (28-32) pg [place] % (Auto) (0.0-7.3) % [place] # (0.0-0.8) K/mm3 Seg Neutrophils % (40.0-70.0) % Seg Neutrophils # (1.8-7.7) K/mm3 PT (12.2-14.9) Sec. INR (0.87-1.13) Sodium 127 L (137-145) mmol/L Potassium 2.9 L* (3.6-5.0) mmol/L Chloride 84.0 L (98-107) mmol/L BUN 23 H (7-17) mg/dL Creatinine 0.6 L (0.7-1.2) mg/dL Glucose (65-100) mg/dL Phosphorus (2.5-4.5) mg/dL Magnesium (1.7-2.3) mg/dL Total Bilirubin 8.2 H (0.1-1.2) mg/dL Direct Bilirubin 5.4 H (0-0.2) mg/dL AST (5-40) units/L Alkaline Phosphatase (35-129) units/L Lactate Dehydrogenase (91-180) units/L Albumin (3.9-5) g/dL Lipase (13-60) units/L Urine WBC (Auto) (0.0-6.0) /HPF Salicylates (2.8-20.0) mg/dL - Imaging and Cardiology EKG: image reviewed (nsr 120, read by me) CT scan - abdomen: report reviewed US - abdomen: report reviewed Assessment and Plan Acute pancreatitis secondary to alcohol use Urinary tract infection, no sepsis Alcohol withdrawal Elevated bilirubin Hyponatremia Depression Anxiety Hypertension Diabetes type [address] on bowel rest, start IV fluids, consult GI Start IV Rocephin, and blood culture, follow urine culture Start CIWA protocol with IV Ativan Check fingersticks and initiate insulin sliding scale Start DVT prophylaxis
[2016-06-10] MEDS ORDERED: NACL 0.9% 1000 ML 1,000 ML IV SCH (04:00)
[2016-06-10] MEDS ORDERED: ROCEPHIN/NS 1 GM/50 ML 50 ML IV ONE (04:04)
[2016-06-10] MEDS: ROCEPHIN/NS 1 GM/50 ML 50 ML IV SCH (04:10)
[2016-06-10] MEDS ORDERED: TYLENOL PO PRN (05:42)
[2016-06-10] MEDS ORDERED: DULCOLAX PR PRN (05:42)
[2016-06-10] MEDS ORDERED: ZOFRAN IV PRN (05:42)
[2016-06-10] MEDS ORDERED: MILK OF MAGNESIA PO PRN (05:42)
--- NOTE | 2016-06-10 08:11 | XRay Report ---
ROUTINE CHEST, TWO VIEWS: HISTORY: chest pain, weakness, shortness of breath. The trachea, heart, mediastinal contour, lung wagner and bony thorax are unremarkable. IMPRESSION: Unremarkable chest x-ray.
[2016-06-10] MEDS ORDERED: NACL 0.9% 1000 ML 1,000 ML with KCL 40 MEQ IV SCH (09:06)
[2016-06-10] MEDS ORDERED: LOVENOX SUB-Q SCH (10:00)
[2016-06-10] MEDS: LOVENOX SUB-Q SCH (10:48)
[2016-06-10] MEDS: KCL IV SCH ×2 (10:55→23:07)
[2016-06-10] MEDS: NS IV SCH ×2 (10:55→23:07)
[2016-06-10] MEDS ORDERED: VASELINE LIP THERAPY TP PRN (13:00)
--- NOTE | 2016-06-10 14:37 | Gastroenterology Consultation ---
<CARMEN BAI - Last Filed: 06/10/16 14:50> History of Present Illness - Reason for Consult Consult date: 06/10/16 abdominal pain/ elevated bilirubin Requesting physician: NADIA RAMIREZ - History of Present Illness Ms Alva is a 45 y/o female admitted from her PCP with elevated Bilirubin and abdominal pain. She states she has chronic abdominal pain and has been seen in our office last year and underwent EGD (gastritis). She does note that she drinks two Vodka drinks per day. Her AST/ALK Phos have been elevated in office in the past. On admission she was found to have a TB of >9. She denies prior liver disease. CT/US significant for pancreatic edema c/w early pancreatitis ( lipase 277) and GB sludge but no dilatation of CBD. WBC >17K. She denies N/V or diarrhea. Her pain is located in the epigastric area and radiates to each side. She has a hx of gastric bypass. Past History Past Medical History: diabetes, other (depression anxiety) Past Surgical History: Other (gastric bypass) Social history: alcohol abuse Family history: no significant family history Medications and Allergies Allergies Allergy/AdvReac Type Severity Reaction Status Date / Time No Known Allergies Allergy Verified 06/09/16 20:19 Home Medications Medication Instructions Recorded Confirmed Last Taken Type AtorvaSTATin [Lipitor] 20 mg PO DAILY 06/09/16 06/09/16 06/06/16 History Escitalopram Oxalate [Lexapro] 20 mg PO DAILY 06/09/16 06/09/16 06/06/16 History Folic Acid [Folvite] 1 mg PO QDAY 06/09/16 06/09/16 06/06/16 History Gabapentin [Neurontin] 100 mg PO Q8HR 06/09/16 06/09/16 06/06/16 History LORazepam [Ativan] 0.5 mg PO TID PRN 06/09/16 06/09/16 06/06/16 History Lisinopril [Zestril] 20 mg PO QDAY 06/09/16 06/09/16 06/06/16 History Propranolol [Inderal] 10 mg PO BID 06/09/16 06/09/16 06/06/16 History Venlafaxine Xr [Effexor Xr] 75 mg PO QDAY 06/09/16 06/09/1617 History busPIRone [Buspar] 10 mg PO TID 06/09/16 06/09/16 06/06/16 History metFORMIN [Glucophage] 500 mg PO QDAY 06/09/16 06/09/16 06/06/16 History Active Meds: Active Medications Acetaminophen (Tylenol) 650 mg PO Q4H PRN PRN Reason: Pain MILD(1-3)/Fever >100.5/GALVEZ Bisacodyl (Dulcolax) 10 mg DE QDAY PRN PRN Reason: Constipation unrelieved by MOM Enoxaparin Sodium (Lovenox) 40 mg SUB-Q QDAY@1000 PENDING SALE TO [facility] Last Admin: 06/10/16 10:48 Dose: 40 mg Hydrophilic Ointment (Vaseline Lip Therapy) 1 applic TP DIRECT PRN PRN Reason: Dry Lips Ceftriaxone Sodium (Rocephin/Ns 1 Gm/50 Ml) 50 mls @ 100 mls/hr IV Q24HR PENDING SALE TO [facility] Last Admin: 06/10/16 04:10 Dose: 100 mls/hr Potassium Chloride/Sodium Chloride (Ns/Kcl 40meq) 1,000 mls @ 125 mls/hr IV DIRECT PENDING SALE TO [facility] Last Admin: 06/10/16 10:55 Dose: 125 mls/hr Lorazepam (Ativan) 2 mg IV Q1HR PRN PRN Reason: CIWA-Ar 8-15 Lorazepam (Ativan) 4 mg IV Q1HR PRN PRN Reason: CIWA-Ar 16-25 Magnesium Hydroxide (Milk Of Magnesia) 30 ml PO Q4H PRN PRN Reason: Constipation Morphine Sulfate (Morphine) 2 mg IV Q4H PRN PRN Reason: Pain, Moderate (4-6) Ondansetron HCl (Zofran) 4 mg IV Q8H PRN PRN Reason: N/V unrelieved by Reglan Review of Systems - Review of Systems All systems: negative Gastrointestinal: abdominal pain Exam - Constitutional Vital Signs: Temp Pulse Resp BP Pulse Ox 97.6 F 116 H 20 120/70 97 06/10/16 14:30 06/10/16 14:30 06/10/16 14:30 06/10/16 14:30 06/10/16 14:30 General appearance: no acute distress - EENT Eyes: scleral icterus ENT: hearing intact - Respiratory Respiratory: bilateral: CTA - Cardiovascular Rhythm: other (tachycardic) Extremities: No edema - Gastrointestinal General gastrointestinal: Present: soft, tender (TTP epigastric area), normal bowel sounds - Integumentary Integumentary: Present: warm, dry, jaundice - Neurologic Neurological: alert and oriented x3 - Psychiatric Psychiatric: cooperative, other (flat affect) - Labs CBC & Chem 7: 06/09/16 18:34 06/10/16 00:14 Assessment and Plan 1. ? pancreatitis -Liapse elevated, repeat in AM, check CRP -Keep NPO except ice chips for now -CT c/w peripancreatic edema, no necrosis -WBC >17K , likely 2/2 inflammation 2.Elevated Bilirubin -likely Hepatocellular -? ETOH etiology -NO ETOH -Check Hepatitis profile -DF 10, no need for steroid treatments. -Supportive care. -PPI daily <AFSHIN VARGAS - Last Filed: 06/10/16 18:16> History of Present Illness - History of Present Illness GI Attending: I have performed a face to face evaluation on Ms. Alva and agree with the above note of Linnette Bai NP. Ms. Alva is known to me from my office practice and is known to have a hx of EtOH abuse. She states that she still drinks 2 drinks/day and puts 1/2 shot in each drink. She is admitted with abdominal pain, nausea/vomiting. WBC 17k, U/S shows possible stone vs sludge, confirmed on CT. There is no biliary dilation. Lipase slightly elevated with CRP of 16. This may represent pancreatitis, so would treat conservatively with IVF and pain meds. LFT's are grossly abnormal and the bili is elevated significantly out of proportion to the liver enzymes. I feel that this is more of a hepatocellular process, particularly alcoholic hepatitis. She does not meet criteria for Pentoxy. If not improved by tomorrow, could consider HIDA to evaluate for underlying GB dysfunction. Pt needs to be abstinent from all EtOH and to be on CIWA protocol as well. Medications and Allergies Active Meds: Active Medications Acetaminophen (Tylenol) 650 mg PO Q4H PRN PRN Reason: Pain MILD(1-3)/Fever >100.5/GALVEZ Bisacodyl (Dulcolax) 10 mg DE QDAY PRN PRN Reason: Constipation unrelieved by MOM Enoxaparin Sodium (Lovenox) 40 mg SUB-Q QDAY@1000 PENDING SALE TO [facility] Last Admin: 06/10/16 10:48 Dose: 40 mg Hydrophilic Ointment (Vaseline Lip Therapy) 1 applic TP DIRECT PRN PRN Reason: Dry Lips Last Admin: 06/10/16 14:44 Dose: 1 applic Ceftriaxone Sodium (Rocephin/Ns 1 Gm/50 Ml) 50 mls @ 100 mls/hr IV Q24HR MARLEE Last Admin: 06/10/16 04:10 Dose: 100 mls/hr Potassium Chloride/Sodium Chloride (Ns/Kcl 40meq) 1,000 mls @ 125 mls/hr IV DIRECT MARLEE Last Admin: 06/10/16 10:55 Dose: 125 mls/hr Lorazepam (Ativan) 2 mg IV Q1HR PRN PRN Reason: CIWA-Ar 8-15 Lorazepam (Ativan) 4 mg IV Q1HR PRN PRN Reason: CIWA-Ar 16-25 Magnesium Hydroxide (Milk Of Magnesia) 30 ml PO Q4H PRN PRN Reason: Constipation Morphine Sulfate (Morphine) 2 mg IV Q4H PRN PRN Reason: Pain, Moderate (4-6) Ondansetron HCl (Zofran) 4 mg IV Q8H PRN PRN Reason: N/V unrelieved by Reglan Exam - Constitutional Vital Signs: Temp Pulse Resp BP Pulse Ox 97.6 F 116 H 20 120/70 97 06/10/16 14:30 06/10/16 14:30 06/10/16 14:30 06/10/16 14:30 06/10/16 14:30 - Labs CBC & Chem 7: 06/09/16 18:34 06/10/16 00:14 Lab Results: Laboratory Results - last 24 hr 06/10/16 06/10/16 15:19 15:19 C-Reactive Protein 16.30 H Hepatitis A IgM Ab -1 Hep Bs Antigen Non-reactive Hep B Core IgM Ab Non-reactive Hepatitis C Antibody Non-reactive
[2016-06-11 06:10] LABS: Basophils % (Auto) 0.3 % (0.0-1.8); Eosinophils % (Auto) 0.2 % (0.0-4.3); Hemoglobin 8.6 gm/dl (10.1-14.3); Mean Corpuscular HGB Conc 34 % (30-34); Mean Corpuscular Hemoglobin 37 pg (28-32); Mean Corpuscular Volume 109 fl (79-97); Platelet Count 197 K/mm3 (140-440); Red Blood Count 2.32 M/mm3 (3.65-5.03); Red Cell Distribution Width 14.2 % (13.2-15.2); White Blood Count 14.2 K/mm3 (4.5-11.0)
[2016-06-11] MEDS: MORPHINE IV PRN (06:26)
[2016-06-11 06:41] LABS: Hematocrit 26.8 % (30.3-42.9)
[2016-06-11 06:50] LABS: Blood Urea Nitrogen 13 mg/dL (7-17); Calcium 7.9 mg/dL (8.4-10.2); Carbon Dioxide 25 mmol/L (22-30); Chloride 94.3 mmol/L (98-107); Glucose 85 mg/dL (65-100); Sodium 132 mmol/L (137-145)
[2016-06-11 06:51] LABS: Anion Gap 16 mmol/L
[2016-06-11 06:52] LABS: Potassium 3.6 mmol/L (3.6-5.0)
[2016-06-11] MEDS: ROCEPHIN/NS 1 GM/50 ML 50 ML IV SCH (10:45)
[2016-06-11] MEDS: LOVENOX SUB-Q SCH ×2 (10:46→10:50)
--- NOTE | 2016-06-11 13:22 | Progress Note ---
Assessment and Plan Assessment and plan: 45-year-old female presents with acute alcoholic pancreatitis improving. Within and was stable. Disposition Plan: bowel rest advance diet and discharged home. Total Time Spent with Patient (Minutes): 23 - Patient Problems (1) Acute pancreatitis Current Visit: Yes Status: Acute Plan to address problem: Acute pancreatitis secondary to EtOH use and abuse. Patient seems to do well with bowel rest and aggressive IV hydration. Symptom management treating nausea abdominal pain. Patient seems to be stable and improved now we will advance diet to clear liquid diet and advance as tolerated. Follow-up lipase and amylase. (2) Alcohol withdrawal Current Visit: Yes Status: Acute Plan to address problem: She is stable no longer and withdrawal. Treated with CIWA protocol. Has done well. Hospital course unremarkable. (3) Cystitis Current Visit: Yes Status: Acute Plan to address problem: Cystitis treated with Rocephin. No fever no flank pain. (4) Hypokalemia Current Visit: Yes Status: Resolved Plan to address problem: Treated resolved. Current potassium 3.6. We'll follow-up lab in a.m. History Interval history: Feeling better today. Stomach feels much better. No vomiting today. No diarrhea. Hospitalist Physical - Constitutional Vitals: Temp Pulse Resp BP Pulse Ox 98.5 F 107 H 20 103/64 100 06/11/16 08:00 06/11/16 08:00 06/11/16 08:00 06/11/16 08:00 06/11/16 10:00 General appearance: Present: no acute distress - EENT Eyes: Present: PERRL, EOM intact ENT: hearing intact, clear oral mucosa, dentition normal - Neck Neck: Present: supple, normal ROM - Respiratory Respiratory: bilateral: CTA - Cardiovascular Rhythm: regular - Extremities Extremities: no ischemia, pulses intact, pulses symmetrical Peripheral Pulses: within normal limits - Abdominal General gastrointestinal: soft, tender, non-distended - Integumentary Integumentary: Present: clear, warm, dry - Psychiatric Psychiatric: appropriate mood/affect - Neurologic Neurologic: CNII-XII intact Results - Labs CBC & Chem 7: 06/11/16 05:11 06/11/16 05:11 Labs: Laboratory Last Values WBC 14.2 K/mm3 (4.5-11.0) H 06/11/16 05:11 RBC 2.32 M/mm3 (3.65-5.03) L 06/11/16 05:11 Hgb 8.6 gm/dl (10.1-14.3) L 06/11/16 05:11 Hct 26.8 % (30.3-42.9) L 06/11/16 05:11 MCV 109 fl (79-97) H 06/11/16 05:11 MCH 37 pg (28-32) H 06/11/16 05:11 MCHC 34 % (30-34) 06/11/16 05:11 RDW 14.2 % (13.2-15.2) 06/11/16 05:11 Plt Count 197 K/mm3 (140-440) 06/11/16 05:11 Lymph % (Auto) 15.7 % (13.4-35.0) 06/11/16 05:11 [place] % (Auto) 9.7 % (0.0-7.3) H 06/11/16 05:11 Eos % (Auto) 0.2 % (0.0-4.3) 06/11/16 05:11 Baso % (Auto) 0.3 % (0.0-1.8) 06/11/16 05:11 Lymph # 2.2 K/mm3 (1.2-5.4) 06/11/16 05:11 [place] # 1.4 K/mm3 (0.0-0.8) H 06/11/16 05:11 Eos # 0.0 K/mm3 (0.0-0.4) 06/11/16 05:11 Baso # 0.0 K/mm3 (0.0-0.1) 06/11/16 05:11 Seg Neutrophils % 74.1 % (40.0-70.0) H 06/11/16 05:11 Seg Neutrophils # 10.5 K/mm3 (1.8-7.7) H 06/11/16 05:11 PT 15.3 Sec. (12.2-14.9) H 06/09/16 18:34 INR 1.22 (0.87-1.13) H 06/09/16 18:34 Sodium 132 mmol/L (137-145) L 06/11/16 05:11 Potassium 3.6 mmol/L (3.6-5.0) D 06/11/16 05:11 Chloride 94.3 mmol/L (98-107) L 06/11/16 05:11 Carbon Dioxide 25 mmol/L (22-30) 06/11/16 05:11 Anion Gap 16 mmol/L 06/11/16 05:11 BUN 13 mg/dL (7-17) 06/11/16 05:11 Creatinine 0.4 mg/dL (0.7-1.2) L 06/11/16 05:11 Estimated GFR > 60 ml/min 06/11/16 05:11 BUN/Creatinine Ratio 32.50 % 06/11/16 05:11 Glucose 85 mg/dL (65-100) 06/11/16 05:11 Calcium 7.9 mg/dL (8.4-10.2) L 06/11/16 05:11 Phosphorus 0.8 mg/dL (2.5-4.5) L* 06/09/16 18:37 Magnesium 2.0 mg/dL (1.7-2.3) 06/11/16 05:11 Total Bilirubin 8.2 mg/dL (0.1-1.2) H 06/10/16 00:14 Direct Bilirubin 5.4 mg/dL (0-0.2) H 06/10/16 00:14 Indirect Bilirubin 2.8 mg/dL 06/10/16 00:14 AST 151 units/L (5-40) H 06/09/16 18:37 ALT 43 units/L (7-56) 06/09/16 18:37 Alkaline Phosphatase 213 units/L (35-129) H 06/09/16 18:37 Lactate Dehydrogenase 500 units/L (91-180) H 06/09/16 18:37 Total Creatine Kinase 43 units/L (30-135) 06/09/16 18:37 CK-MB (CK-2) < 1.0 ng/mL (0.0-4.0) 06/09/16 18:37 CK-MB (CK-2) Rel Index 2.3 (0-4) 06/09/16 18:37 Troponin T < 0.010 ng/mL (0.00-0.029) 06/09/16 18:37 C-Reactive Protein 16.30 mg/dL (0.00-1.30) H 06/10/16 15:19 NT-Pro-B Natriuret Pep 262.4 pg/mL (0-450) 06/09/16 19:29 Total Protein 7.8 g/dL (6.3-8.2) 06/09/16 18:37 Albumin 3.6 g/dL (3.9-5) L 06/09/16 18:37 Albumin/Globulin Ratio 0.9 % 06/09/16 18:37 Lipase 292 units/L (13-60) H 06/11/16 05:11 TSH 1.570 mlU/mL (0.270-4.200) 06/09/16 18:34 Urine Color [place] (Yellow) 06/09/16 Unknown Urine Turbidity Cloudy (Clear) 06/09/16 Unknown Urine pH 5.0 (5.0-7.0) 06/09/16 Unknown Ur Specific [place] 1.020 (1.003-1.030) 06/09/16 Unknown Urine Protein 100 mg/dl mg/dL (Negative) 06/09/16 Unknown Urine Glucose (UA) Neg mg/dL (Negative) 06/09/16 Unknown Urine Ketones Tr mg/dL (Negative) 06/09/16 Unknown Urine Blood Neg (Negative) 06/09/16 Unknown Urine Nitrite Neg (Negative) 06/09/16 Unknown Ur Reducing Substances Not Reportable 06/09/16 Unknown Urine Bilirubin Sm (Negative) 06/09/16 Unknown Urine Ictotest Positive (Negative) 06/09/16 Unknown Urine Urobilinogen 4.0 mg/dL (<2.0) 06/09/16 Unknown Ur Leukocyte Esterase Sm (Negative) 06/09/16 Unknown Urine WBC (Auto) 14.0 /HPF (0.0-6.0) H 06/09/16 Unknown Urine RBC (Auto) 5.0 /HPF (0.0-6.0) 06/09/16 Unknown U Epithel Cells (Auto) 3.0 /HPF (0-13.0) 06/09/16 Unknown Urine Bacteria (Auto) 4+ /HPF (Negative) 06/09/16 Unknown Urine Mucus 3+ /HPF 06/09/16 Unknown Urine HCG, Qual Negative (Negative) 06/09/16 Unknown Salicylates < 0.3 mg/dL (2.8-20.0) L 06/09/16 19:29 Acetaminophen < 15.0 ug/mL (10.0-30.0) 06/09/16 19:29 Plasma/Serum Alcohol < 0.01 gm% (0-0.07) 06/09/16 19:29 Hepatitis A IgM Ab -1 (NonReactive) 06/10/16 15:19 Hep Bs Antigen Non-reactive (Negative) 06/10/16 15:19 Hep B Core IgM Ab Non-reactive (NonReactive) 06/10/16 15:19 Hepatitis C Antibody Non-reactive (NonReactive) 06/10/16 15:19 - Imaging and Cardiology Chest x-ray: image reviewed CT scan - abdomen: report reviewed
[2016-06-11] MEDS: NS IV SCH (22:16)
[2016-06-11] MEDS: KCL IV SCH (22:16)
--- NOTE | 2016-06-11 23:19 | Gastroenterology Progress Note ---
Assessment and Plan suspected alcoholic hepatitis - DF < 32, no indicaion for treatment at present time. bilirubin is lower today. pt is awake and alert, and able to answer questions slowly. continue nutritional support, monitor for withdrawal. discussed in detail about importance of alcohol cessation, and encouraged AA with pt. pancreatitis - likely 2/2 alcohol, cont IVF's, monitor liver enzymes. Questionable inflammation vs mass in HoP. Consider MRI/MRCP for further evaluation. Subjective Date of service: 06/11/16 Principal diagnosis: alcohol hepatitis Interval history: pt reports improvement in symptoms including abd pain and mental status. c/o lower extremity pain. Awake and alert at time of exam, denies cp or sob Objective - Constitutional Vitals: Temp Pulse Resp BP Pulse Ox 99.0 F 109 H 18 96/62 97 06/11/16 15:02 06/11/16 15:02 06/11/16 20:58 06/11/16 15:02 06/11/16 15:02 General appearance: no acute distress - EENT Eyes: scleral icterus - Respiratory Respiratory effort: normal Respiratory: bilateral: CTA - Cardiovascular Rhythm: regular Heart Sounds: Present: S1 & S2 - Extremities Extremities: No edema - Gastrointestinal General gastrointestinal: Present: soft, non-tender, non-distended, normal bowel sounds - Integumentary Integumentary: Present: jaundice - Neurologic Neurological: alert and oriented x3 - Psychiatric Psychiatric: appropriate mood/affect - Labs CBC & Chem 7: 06/11/16 05:11 06/11/16 05:11 Labs: Laboratory Results - last 24 hr 06/11/16 06/11/16 06/11/16 05:11 05:11 05:11 WBC 14.2 H RBC 2.32 L Hgb 8.6 L Hct 26.8 L MCV 109 H MCH 37 H MCHC 34 RDW 14.2 Plt Count 197 Lymph % (Auto) 15.7 [place] % (Auto) 9.7 H Eos % (Auto) 0.2 Baso % (Auto) 0.3 Lymph # 2.2 [place] # 1.4 H Eos # 0.0 Baso # 0.0 Seg Neutrophils % 74.1 H Seg Neutrophils # 10.5 H Sodium 132 L Potassium 3.6 D Chloride 94.3 L Carbon Dioxide 25 Anion Gap 16 BUN 13 Creatinine 0.4 L Estimated GFR > 60 BUN/Creatinine Ratio 32.50 Glucose 85 Calcium 7.9 L Magnesium 2.0 Lipase 292 H - Imaging CT scan: report reviewed Ultrasound: report reviewed
[2016-06-12] MEDS: MORPHINE IV PRN (01:08)
[2016-06-12 08:29] LABS: Anion Gap 21 mmol/L; Blood Urea Nitrogen 9 mg/dL (7-17); Calcium 8.3 mg/dL (8.4-10.2); Carbon Dioxide 20 mmol/L (22-30); Chloride 96.5 mmol/L (98-107); Glucose 88 mg/dL (65-100); Potassium 4.1 mmol/L (3.6-5.0); Sodium 133 mmol/L (137-145)
--- NOTE | 2016-06-12 10:28 | Gastroenterology Progress Note ---
Assessment and Plan alcoholic hepatitis - labs on admission showed DF < 32. Recommend repeat liver enzymes, and if continues to decrease, likely can be discharged home with close follow-up. Discussed again importance of alcohol cessation with pt and recommended rehab/AA. Advance diet as tolerated. Subjective Date of service: 06/12/16 Principal diagnosis: alcohol hepatitis Interval history: no new complaints today. states feeling better overall. denies n/v, abd pain. Objective - Constitutional Vitals: Temp Pulse Resp BP Pulse Ox 99.2 F 118 H 16 114/62 95 06/12/16 07:58 06/12/16 07:58 06/12/16 07:58 06/12/16 07:58 06/12/16 07:58 General appearance: no acute distress - EENT Eyes: scleral icterus - Respiratory Respiratory effort: normal Respiratory: right: CTA - Cardiovascular Rhythm: regular Heart Sounds: Present: S1 & S2 - Gastrointestinal General gastrointestinal: Present: soft, non-distended, normal bowel sounds - Neurologic Neurological: alert and oriented x3 - Labs CBC & Chem 7: 06/11/16 05:11 06/12/16 07:12 Labs: Laboratory Results - last 24 hr 06/12/16 06/12/16 07:12 07:12 Sodium 133 L Potassium 4.1 Chloride 96.5 L Carbon Dioxide 20 L Anion Gap 21 BUN 9 Creatinine 0.3 L Estimated GFR > 60 BUN/Creatinine Ratio 30.00 Glucose 88 Calcium 8.3 L Lipase 185 H
[2016-06-12] MEDS: ROCEPHIN/NS 1 GM/50 ML 50 ML IV SCH (11:03)
[2016-06-12] MEDS: LOVENOX SUB-Q SCH (11:06)
--- NOTE | 2016-06-12 12:02 | Discharge Summary ---
Providers - Providers Date of Admission: 06/10/16 03:21 Date of discharge: 06/12/16 Attending physician: SERVANDO BRAR Primary care physician: DARIEL SOLARES MD Hospitalization Condition: Stable Hospital course: Patient is a 45-year-old woman history of gastric bypass, type 2 diabetes mellitus, hypertension, anxiety, depression, alcohol abuse and dyslipidemia who presented with abdominal pain. 1. Alcoholic hepatitis 2. Pancreatitis, alcohol related 3. Diabetes mellitus type 2 4. Hypertension per GI, Dr. Hunter Velasco, "alcoholic hepatitis - labs on admission showed DF < 32. Recommend repeat liver enzymes, and if continues to decrease, likely can be discharged home with close follow-up. Discussed again importance of alcohol cessation with pt and recommended rehab/AA. Advance diet as tolerated." Time discharged 33 minutes Disposition: DISCHARGED TO HOME OR SELFCARE Core Measure Documentation - Palliative Care Palliative Care/ Comfort Measures: Not Applicable - Core Measures Any of the following diagnoses?: none - VTE Discharge Requirements Deep Vein Thrombosis/Pulmonary Embolism Present on Admission: No Has pt received <5 days of overlap therapy or INR<2.0: No Anticoagulant overlap therapy prescribed at discharge: No Contraindication No Overlap Therapy order at DC: Not Indicated Exam - Physical Exam Narrative exam: GEN: WDWN, NAD, AWAKE, ALERT, ORIENTATED 3 HEENT: NCAT, PERRL, EOMI, OP CLEAR NECK: SUPPLE, NO THYROMEGALY, NO JVD, NO LAD CVS: RRR, NORMAL S1S2 LUNGS/CHEST: CTA B, NORMAL CHEST EXPANSION B, GOOD AIR ENTRY B ABD: SOFT, NONDISTENDED, MILD EPIGASTRIC TENDER, GBS, NO REBOUND OR GUARDING EXT/SKIN: NO SIGNIFICANT EDEMA OR RASH MSK: FROM X 4 EXTREMITIES NEURO: CN 2-12 GROSSLY INTACT, NO NEW FOCAL DEFICITS PSY: CALM - Constitutional Vitals: Temp Pulse Resp BP Pulse Ox 99.2 F 118 H 16 114/62 95 06/12/16 07:58 06/12/16 07:58 06/12/16 07:58 06/12/16 07:58 06/12/16 07:58 Plan Activity: advance as tolerated (no strenous activites until cleared by PCP. ) Diet: diabetic, clear liquids, advance as tolerated Special Instructions: record blood sugar diary Follow up with: DARIEL SOLARES MD [Primary Care Provider] - 3-5 Days AFSHIN VARGAS MD [Staff Physician] - 7 Days Prescriptions: HYDROcodone/APAP 5-325 [[place] 5/325] 1 each PO Q8H PRN #15 tablet PRN Reason: Pain , Severe (7-10)
[2016-06-12 16:08] VITALS: BP 114/70
== END 2016-06-12 19:54 | disposition home or self-care (01) | DRG 432 ==
LOC: ED 17:35 → 3A 06-10 03:21
PROVIDERS: ADMIT Internal Medicine; ATTEND Internal Medicine
DX: K70.10 Alcoholic hepatitis without ascites (principal); K85.20 Alcohol induced acute pancreatitis without necrosis or infection; E87.1 Hypo-osmolality and hyponatremia; N39.0 Urinary tract infection, site not specified; F32.9 Major depressive disorder, single episode, unspecified; E11.9 Type 2 diabetes mellitus without complications; E78.5 Hyperlipidemia, unspecified; I10 Essential (primary) hypertension; E83.39 Other disorders of phosphorus metabolism; E83.42 Hypomagnesemia; E80.6 Other disorders of bilirubin metabolism; F41.9 Anxiety disorder, unspecified; E87.6 Hypokalemia; Z71.41 Alcohol abuse counseling and surveillance of alcoholic; Z79.84 Long term (current) use of oral hypoglycemic drugs; Z79.899 Other long term (current) drug therapy; Z98.84 Bariatric surgery status; Z82.49 Family history of ischemic heart disease and other diseases of the circulatory system
CPT/HCPCS: 36415; 71020; 74177; 76705; 80048; 80053; 80074; 80320; 81001; 81025; 82248; 82330; 82550; 82553; 83615; 83690; 83735; 83880; 84100; 84443; 84484; 85025; 85610; 86140; 87040; 87076; 87086; 87186; 93005; 93010; 96365; 96367; 96375; G0480; J0696; J1650; J2060; J2270; J3475; J7030; J7040; Q9967

== ENCOUNTER 2016-06-15 19:45 | Inpatient (IN) | payer OTHER ==
[2016-06-15 20:57] LABS: Basophils % (Auto) 0.2 % (0.0-1.8); Eosinophils % (Auto) 0.4 % (0.0-4.3); Hematocrit 28.3 % (30.3-42.9); Hemoglobin 9.6 gm/dl (10.1-14.3); Mean Corpuscular HGB Conc 34 % (30-34); Mean Corpuscular Hemoglobin 37 pg (28-32); Mean Corpuscular Volume 111 fl (79-97); Platelet Count 289 K/mm3 (140-440); Red Blood Count 2.56 M/mm3 (3.65-5.03); Red Cell Distribution Width 15.4 % (13.2-15.2); White Blood Count 18.7 K/mm3 (4.5-11.0)
[2016-06-15 21:17] LABS: Alanine Aminotransferase 47 units/L (7-56); Albumin 3.2 g/dL (3.9-5); Albumin/Globulin Ratio 0.9 %; Alkaline Phosphatase 214 units/L (35-129); Bilirubin,Total 5.8 mg/dL (0.1-1.2); Blood Urea Nitrogen 10 mg/dL (7-17); Calcium 9.1 mg/dL (8.4-10.2); Carbon Dioxide 17 mmol/L (22-30); Glucose 97 mg/dL (65-100); Lipase 113 units/L (13-60); Total Protein 6.9 g/dL (6.3-8.2)
[2016-06-15 21:18] LABS: Chloride 96.8 mmol/L (98-107); Potassium 4.3 mmol/L (3.6-5.0); Sodium 135 mmol/L (137-145)
[2016-06-15 21:30] LABS: Anion Gap 26 mmol/L
[2016-06-16 04:32] LABS: Bacteria,Urine 1+ /HPF (Negative); Mucus,Urine 3+ /HPF
[2016-06-16 04:33] LABS: Bilirubin,Urine Small (Negative); Ketones,Urine Trace mg/dL (Negative)
[2016-06-16 04:34] LABS: Blood,Urine Negative (Negative); Protein,Urine <30 mg dL mg/dL (Negative); Urobilinogen,Urine 0.2 mg/dL (<2.0)
[2016-06-16 04:35] LABS: Leukocyte Esterase,Urine Negative (Negative); Nitrite,Urine Negative (Negative)
--- NOTE | 2016-06-16 09:10 | Emergency Department Report ---
ED Abdominal Pain HPI - General Chief Complaint: Abdominal Pain Stated Complaint: SOB/ABD PAIN Time Seen by Provider: 06/16/16 09:07 Source: patient Mode of arrival: Wheelchair Limitations: No Limitations - History of Present Illness Initial Comments: The patient was recently discharged from this facility. She is status post gastric surgery. She may have a history of alcoholism. She had a CT which was suspicious for early pancreatitis. She was treated and discharged in improved condition. However after Monday night she went home and states she really hasn' t been able to tolerate eating. She denies fever or chills. She's had no signs of GI bleeding. She states that due to her previous surgery she often wants to throw up but cannot. The patient was seen by gastroenterology. Her white blood cell count went from 17,000 down to 14,000 on discharge. MD Complaint: abdominal pain -: Gradual Location: epigastric Radiation: none Migration to: no migration Severity scale (0 -10): 10 Quality: aching Consistency: constant Improves With: nothing Worsens With: eating Associated Symptoms: nausea, vomiting, other (patient states he is unable to tolerate by mouth) - Related Data Home Medications Medication Instructions Recorded Confirmed Last Taken AtorvaSTATin [Lipitor] 20 mg PO DAILY 06/09/16 06/16/16 06/06/16 Escitalopram Oxalate [Lexapro] 20 mg PO DAILY 06/09/16 06/16/16 06/06/16 Folic Acid [Folvite] 1 mg PO QDAY 06/09/16 06/16/16 06/06/16 Gabapentin [Neurontin] 100 mg PO Q8HR 06/09/16 06/16/16 06/06/16 LORazepam [Ativan] 0.5 mg PO TID PRN 06/09/16 06/16/16 06/06/16 Lisinopril [Zestril TAB] 20 mg PO QDAY 06/09/16 06/16/16 06/06/16 Propranolol [Inderal] 10 mg PO BID 06/09/16 06/16/16 06/06/16 Venlafaxine Xr [Effexor XR] 75 mg PO QDAY 06/09/16 06/16/16 06/06/16 busPIRone [Buspar] 10 mg PO TID 06/09/16 06/16/16 06/06/16 metFORMIN [Glucophage] 500 mg PO QDAY 06/09/16 06/16/16 06/06/16 Previous Rx's Medication Instructions Recorded Last Taken Type HYDROcodone/APAP 5-325 [[place] 1 each PO Q8H PRN #15 tablet 06/12/16 Unknown Rx 5/325] Allergies Allergy/AdvReac Type Severity Reaction Status Date / Time No Known Allergies Allergy Verified 06/09/16 20:19 ED Review of Systems ROS: Stated complaint: SOB/ABD PAIN Other details as noted in HPI Constitutional: denies: chills, fever Eyes: denies: eye pain, eye discharge, vision change ENT: denies: ear pain, throat pain Respiratory: denies: cough, shortness of breath, wheezing Cardiovascular: denies: chest pain, palpitations Endocrine: no symptoms reported Gastrointestinal: abdominal pain, nausea. denies: diarrhea Genitourinary: denies: urgency, dysuria, discharge Musculoskeletal: denies: back pain, joint swelling, arthralgia Skin: denies: rash, lesions Neurological: denies: headache, weakness, paresthesias Psychiatric: denies: anxiety, depression Hematological/Lymphatic: denies: easy bleeding, easy bruising ED Past Medical Hx - Past Medical History Previous Medical History?: Yes Hx Hypertension: Yes Hx Diabetes: Yes Hx Arthritis: Yes Additional medical history: PANCREATITIS - Surgical History Past Surgical History?: Yes Additional Surgical History: GASTRIC BYPASS - Social History Smoking Status: Never Smoker Substance Use Type: None - Medications Home Medications: Home Medications Medication Instructions Recorded Confirmed Last Taken Type AtorvaSTATin [Lipitor] 20 mg PO DAILY 06/09/16 06/16/16 06/06/16 History Escitalopram Oxalate [Lexapro] 20 mg PO DAILY 06/09/16 06/16/16 06/06/16 History Folic Acid [Folvite] 1 mg PO QDAY 06/09/16 06/16/16 06/06/16 History Gabapentin [Neurontin] 100 mg PO Q8HR 06/09/16 06/16/16 06/06/16 History LORazepam [Ativan] 0.5 mg PO TID PRN 06/09/16 06/16/16 06/06/16 History Lisinopril [Zestril TAB] 20 mg PO QDAY 06/09/16 06/16/16 06/06/16 History Propranolol [Inderal] 10 mg PO BID 06/09/16 06/16/16 06/06/16 History Venlafaxine Xr [Effexor XR] 75 mg PO QDAY 06/09/16 06/16/16 06/06/16 History busPIRone [Buspar] 10 mg PO TID 06/09/16 06/16/16 06/06/16 History metFORMIN [Glucophage] 500 mg PO QDAY 06/09/16 06/16/16 06/06/16 History HYDROcodone/APAP 5-325 [[place] 1 each PO Q8H PRN #15 tablet 06/12/16 06/16/16 Unknown Rx 5/325] ED Physical Exam - General Limitations: No Limitations General appearance: alert, in no apparent distress - Head Head exam: Present: atraumatic, normocephalic - Eye Eye exam: Present: normal appearance. Absent: scleral icterus - ENT ENT exam: Present: normal exam, mucous membranes moist - Neck Neck exam: Present: normal inspection. Absent: tenderness, meningismus - Respiratory Respiratory exam: Present: normal lung sounds bilaterally. Absent: respiratory distress - Cardiovascular Cardiovascular Exam: Present: regular rate, normal rhythm. Absent: systolic murmur, diastolic murmur, rubs, gallop - GI/Abdominal GI/Abdominal exam: Present: soft, tenderness (mild diffuse tenderness), normal bowel sounds. Absent: distended, guarding, rebound, rigid - Extremities Exam Extremities exam: Present: normal inspection - Back Exam Back exam: Present: normal inspection. Absent: CVA tenderness (R), CVA tenderness (L), muscle spasm, paraspinal tenderness, vertebral tenderness - Neurological Exam Neurological exam: Present: alert, oriented X3, CN II-XII intact. Absent: motor sensory deficit - Psychiatric Psychiatric exam: Present: normal affect, normal mood - Skin Skin exam: Present: warm, dry, intact, normal color. Absent: rash ED Course Vital Signs 06/15/16 06/16/16 06/16/16 20:32 08:08 08:49 Temperature 99.5 F 98.5 F Pulse Rate 114 H 121 H 113 H Respiratory 22 20 22 Rate Blood Pressure 133/81 135/88 Blood Pressure 126/72 [Left] O2 Sat by Pulse 100 100 100 Oximetry 06/16/16 06/16/16 06/16/16 12:23 12:26 13:00 Temperature Pulse Rate 111 H 107 H Respiratory 18 17 14 Rate Blood Pressure Blood Pressure [Left] O2 Sat by Pulse Oximetry 06/16/16 14:00 Temperature Pulse Rate 107 H Respiratory 15 Rate Blood Pressure Blood Pressure [Left] O2 Sat by Pulse 98 Oximetry - Reevaluation(s) Reevaluation #1: I treated the patient with fluids, a banana bag, analgesia. I was hoping to avoid another CT scan. However the patient's lactic acid level did come back bit elevated so I felt obligated. The CT scan showed no acute inflammatory process. 06/16/16 14:37 ED Medical Decision Making - Lab Data Result diagrams: 06/15/16 20:45 06/15/16 20:45 Laboratory Results - last 24 hr 06/15/16 06/15/16 06/16/16 20:45 20:45 Unknown WBC 18.7 H RBC 2.56 L Hgb 9.6 L Hct 28.3 L MCV 111 H MCH 37 H MCHC 34 RDW 15.4 H Plt Count 289 Lymph % (Auto) 12.4 L [place] % (Auto) 6.5 Eos % (Auto) 0.4 Baso % (Auto) 0.2 Lymph # 2.3 [place] # 1.2 H Eos # 0.1 Baso # 0.0 Seg Neutrophils % 80.5 H Seg Neutrophils # 15.0 H Sodium 135 L Potassium 4.3 Chloride 96.8 L Carbon Dioxide 17 L Anion Gap 26 BUN 10 Creatinine 0.5 L D Estimated GFR > 60 BUN/Creatinine Ratio 20.00 Glucose 97 Calcium 9.1 Total Bilirubin 5.8 H AST 183 H ALT 47 Alkaline Phosphatase 214 H Total Protein 6.9 Albumin 3.2 L Albumin/Globulin Ratio 0.9 Lipase 113 H Urine Color Brown Urine Turbidity Cloudy Urine pH 6.0 Ur Specific [place] 1.030 Urine Protein <30 mg dl Urine Glucose (UA) Negative Urine Ketones Trace Urine Blood Negative Urine Nitrite Negative Urine Bilirubin Small Urine Ictotest Positive Urine Urobilinogen 0.2 Ur Leukocyte Esterase Negative Urine WBC (Auto) 7.0 H Urine RBC (Auto) 20.0 U Epithel Cells (Auto) 133.0 H Urine Bacteria (Auto) 1+ Urine Mucus 3+ Urine Yeast (Budding) 2+ Urine HCG, Qual Negative - Radiology Data Radiology results: report reviewed Critical care attestation.: If time is entered above; I have spent that time in minutes in the direct care of this critically ill patient, excluding procedure time. ED Disposition Clinical Impression: Volume depletion, Metabolic acidosis, increased anion gap, Elevated lactic acid level, Chronic liver disease, Hyperbilirubinemia Abdominal pain Qualifiers: Abdominal location: generalized Qualified Code(s): R10.84 - Generalized abdominal pain Disposition: OP ADMITTED IP TO THIS HOSP Is pt being admited?: Yes Does the pt Need Aspirin: No Condition: Undetermined Time of Disposition: 14:42
[2016-06-16] MEDS ORDERED: ZOFRAN IV ONE (09:14)
[2016-06-16] MEDS ORDERED: MORPHINE IV ONE ×2 (09:14→11:12)
[2016-06-16] MEDS ORDERED: PROTONIX IV ONE (09:14)
[2016-06-16] MEDS: VITAMIN B-1 100 MG, FOLVITE 1 MG, INFUVITE 10 ML in NACL 0.9% 1000 ML 1,000 ML IV ONE ×2 (09:39→10:03)
--- NOTE | 2016-06-16 10:00 | XRay Report ---
AP CHEST: HISTORY: Hypertension AP view of the chest demonstrates a normal mediastinal and cardiac contour with clear lungs and normal bony and soft tissue structures. IMPRESSION: Unremarkable AP chest. No change since 06/09/16.
[2016-06-16 10:15] LABS: INR 1.35 (0.87-1.13)
[2016-06-16 10:16] LABS: Partial Thromboplastin Time 39.9 Sec. (24.2-36.6)
[2016-06-16 10:41] LABS: Magnesium 1.5 mg/dL (1.7-2.3)
[2016-06-16] MEDS ORDERED: ZOSYN/NS 3.375GM/50ML 50 ML IV ONE (11:12)
[2016-06-16] MEDS ORDERED: ZOFRAN IV PRN (12:04)
[2016-06-16] MEDS ORDERED: MILK OF MAGNESIA PO PRN (12:04)
[2016-06-16] MEDS ORDERED: DULCOLAX PR PRN (12:04)
[2016-06-16] MEDS ORDERED: TYLENOL PO PRN (12:04)
--- NOTE | 2016-06-16 12:10 | History and Physical Report ---
[id number] presents to the hospital complaining of abdominal pain nausea and vomiting. Patient denies any blood in the vomitus. Patient state that the abdominal pain was sharp in nature and occurred on and off. There are no alleviating or aggravating factors patient denies any diarrhea. No constipation is denies any fever or chills. No syncopal episodes Past History Past Medical History: hyperlipidemia, other (depression) Medications and Allergies Allergies Allergy/AdvReac Type Severity Reaction Status Date / Time No Known Allergies Allergy Verified 06/09/16 20:19 Home Medications Medication Instructions Recorded Confirmed Last Taken Type AtorvaSTATin [Lipitor] 20 mg PO DAILY 06/09/16 06/16/16 06/06/16 History Escitalopram Oxalate [Lexapro] 20 mg PO DAILY 06/09/16 06/16/16 06/06/16 History Folic Acid [Folvite] 1 mg PO QDAY 06/09/16 06/16/16 06/06/16 History Gabapentin [Neurontin] 100 mg PO Q8HR 06/09/16 06/16/16 06/06/16 History LORazepam [Ativan] 0.5 mg PO TID PRN 06/09/16 06/16/16 06/06/16 History Lisinopril [Zestril TAB] 20 mg PO QDAY 06/09/16 06/16/16 06/06/16 History Propranolol [Inderal] 10 mg PO BID 06/09/16 06/16/16 06/06/16 History Venlafaxine Xr [Effexor XR] 75 mg PO QDAY 06/09/16 06/16/16 06/06/16 History busPIRone [Buspar] 10 mg PO TID 06/09/16 06/16/16 06/06/16 History metFORMIN [Glucophage] 500 mg PO QDAY 06/09/16 06/16/16 06/06/16 History HYDROcodone/APAP 5-325 [[place] 1 each PO Q8H PRN #15 tablet 06/12/16 06/16/16 Unknown Rx 5/325] Active Meds: Active Medications Thiamine HCl 100 mg/ Folic Acid 1 mg/ Multivitamins/Minerals 10 ml/ Sodium Chloride 1,011.2 mls @ 250 mls/hr IV ONCE.ED ONE Stop: 06/16/16 13:15 Last Admin: 06/16/16 10:03 Dose: 250 mls/hr Review of Systems Gastrointestinal: abdominal pain Exam - Constitutional Vitals: Temp Pulse Resp BP Pulse Ox 98.5 F 113 H 22 126/72 100 06/16/16 08:08 06/16/16 08:49 06/16/16 08:49 06/16/16 08:49 06/16/16 08:49 General appearance: Present: mild distress - EENT Eyes: Present: PERRL, EOM intact ENT: hearing intact, clear oral mucosa - Neck Neck: Present: supple, normal ROM - Respiratory Respiratory: bilateral: CTA - Cardiovascular Rhythm: regular Heart Sounds: Present: S1 & S2 - Abdominal General gastrointestinal: Present: soft, tender, non-distended, normal bowel sounds - Neurologic Neurologic: CNII-XII intact, moves all extremities Results - Labs CBC & Chem 7: 06/17/16 04:50 06/17/16 04:50 Labs: Laboratory Last Values WBC 18.7 K/mm3 (4.5-11.0) H 06/15/16 20:45 RBC 2.56 M/mm3 (3.65-5.03) L 06/15/16 20:45 Hgb 9.6 gm/dl (10.1-14.3) L 06/15/16 20:45 Hct 28.3 % (30.3-42.9) L 06/15/16 20:45 MCV 111 fl (79-97) H 06/15/16 20:45 MCH 37 pg (28-32) H 06/15/16 20:45 MCHC 34 % (30-34) 06/15/16 20:45 RDW 15.4 % (13.2-15.2) H 06/15/16 20:45 Plt Count 289 K/mm3 (140-440) 06/15/16 20:45 Lymph % (Auto) 12.4 % (13.4-35.0) L 06/15/16 20:45 [place] % (Auto) 6.5 % (0.0-7.3) 06/15/16 20:45 Eos % (Auto) 0.4 % (0.0-4.3) 06/15/16 20:45 Baso % (Auto) 0.2 % (0.0-1.8) 06/15/16 20:45 Lymph # 2.3 K/mm3 (1.2-5.4) 06/15/16 20:45 [place] # 1.2 K/mm3 (0.0-0.8) H 06/15/16 20:45 Eos # 0.1 K/mm3 (0.0-0.4) 06/15/16 20:45 Baso # 0.0 K/mm3 (0.0-0.1) 06/15/16 20:45 Seg Neutrophils % 80.5 % (40.0-70.0) H 06/15/16 20:45 Seg Neutrophils # 15.0 K/mm3 (1.8-7.7) H 06/15/16 20:45 PT 16.6 Sec. (12.2-14.9) H 06/16/16 09:43 INR 1.35 (0.87-1.13) H 06/16/16 09:43 APTT 39.9 Sec. (24.2-36.6) H 06/16/16 09:43 VBG pH 7.328 (7.320-7.420) 06/16/16 09:43 Sodium 135 mmol/L (137-145) L 06/15/16 20:45 Potassium 4.3 mmol/L (3.6-5.0) 06/15/16 20:45 Chloride 96.8 mmol/L (98-107) L 06/15/16 20:45 Carbon Dioxide 17 mmol/L (22-30) L 06/15/16 20:45 Anion Gap 26 mmol/L 06/15/16 20:45 BUN 10 mg/dL (7-17) 06/15/16 20:45 Creatinine 0.5 mg/dL (0.7-1.2) L D 06/15/16 20:45 Estimated GFR > 60 ml/min 06/15/16 20:45 BUN/Creatinine Ratio 20.00 % 06/15/16 20:45 Glucose 97 mg/dL (65-100) 06/15/16 20:45 Lactic Acid 2.3 mmol/L (0.7-2.0) H* 06/16/16 09:43 Calcium 9.1 mg/dL (8.4-10.2) 06/15/16 20:45 Magnesium 1.5 mg/dL (1.7-2.3) L 06/16/16 09:43 Total Bilirubin 5.8 mg/dL (0.1-1.2) H 06/15/16 20:45 AST 183 units/L (5-40) H 06/15/16 20:45 ALT 47 units/L (7-56) 06/15/16 20:45 Alkaline Phosphatase 214 units/L (35-129) H 06/15/16 20:45 NT-Pro-B Natriuret Pep 192.1 pg/mL (0-450) 06/16/16 09:43 Total Protein 6.9 g/dL (6.3-8.2) 06/15/16 20:45 Albumin 3.2 g/dL (3.9-5) L 06/15/16 20:45 Albumin/Globulin Ratio 0.9 % 06/15/16 20:45 Lipase 113 units/L (13-60) H 06/15/16 20:45 Urine Color Brown (Yellow) 06/16/16 Unknown Urine Turbidity Cloudy (Clear) 06/16/16 Unknown Urine pH 6.0 (5.0-7.0) 06/16/16 Unknown Ur Specific [place] 1.030 (1.003-1.030) 06/16/16 Unknown Urine Protein <30 mg dl mg/dL (Negative) 06/16/16 Unknown Urine Glucose (UA) Negative mg/dL (Negative) 06/16/16 Unknown Urine Ketones Trace mg/dL (Negative) 06/16/16 Unknown Urine Blood Negative (Negative) 06/16/16 Unknown Urine Nitrite Negative (Negative) 06/16/16 Unknown Urine Bilirubin Small (Negative) 06/16/16 Unknown Urine Ictotest Positive (Negative) 06/16/16 Unknown Urine Urobilinogen 0.2 mg/dL (<2.0) 06/16/16 Unknown Ur Leukocyte Esterase Negative (Negative) 06/16/16 Unknown Urine WBC (Auto) 7.0 /HPF (0.0-6.0) H 06/16/16 Unknown Urine RBC (Auto) 20.0 /HPF (0.0-6.0) 06/16/16 Unknown U Epithel Cells (Auto) 133.0 /HPF (0-13.0) H 06/16/16 Unknown Urine Bacteria (Auto) 1+ /HPF (Negative) 06/16/16 Unknown Urine Mucus 3+ /HPF 06/16/16 Unknown Urine Yeast ([place]) 2+ /HPF 06/16/16 Unknown Urine HCG, Qual Negative (Negative) 06/16/16 Unknown Ketones 25.8 mg/dL (0.2-2.8) H 06/16/16 09:43 Assessment and Plan - Patient Problems (1) Abdominal pain Current Visit: Yes Status: Acute Qualifiers: Abdominal location: generalized Qualified Code(s): R10.84 - Generalized abdominal pain Plan to address problem: Patient abdominal pain possibly secondary to pancreatitis. Patient CT scan of the abdomen and pelvis which showed hepatic steatosis. We will get GI consult (2) Acute pancreatitis Current Visit: No Status: Acute Plan to address problem: Patient abdominal pain possibly secondary to pancreatitis. Patient CT scan of the abdomen and pelvis which showed hepatic steatosis. We will get GI consultFollow amylase and lipase
[2016-06-16] MEDS: LOVENOX SUB-Q SCH (13:07)
--- NOTE | 2016-06-16 13:45 | Cat Scan Report ---
CT SCAN OF THE ABDOMEN AND PELVIS WITH CONTRAST: HISTORY: Abdominal pain, leukocytosis. TECHNIQUE: Helical CT in 1.25mm intervals following IV contrast. Sagittal and coronal reconstructions. FINDINGS: There is moderate diffuse fatty infiltration throughout the liver. No focal liver mass. No gallstones or biliary dilatation are noted. The spleen and pancreas demonstrate a normal size and attenuation with no evidence of abnormal mass. Subtle inflammation/edema near the pancreatic head has resolved since 06/09/16. The kidneys are normal in size and position with no evidence of hydronephrosis or mass. The adrenal glands are normal. There is no intestinal obstruction or ascites. Normal appendix. Surgical changes are noted in the proximal stomach, correlate with history. The abdominal aorta is normal. The uterus and adnexa are within normal limits There is no evidence of peritoneal air or fluid. There is no evidence of any abnormal masses or fluid collections within the pelvis. No adenopathy is identified. The bladder is normal. IMPRESSION: Hepatic steatosis. No acute inflammatory process is appreciated.
[2016-06-16] MEDS: D5NS 1,000 ML IV SCH (16:49)
[2016-06-16] MEDS: MORPHINE IV PRN (18:51)
[2016-06-17] MEDS: D5NS 1,000 ML IV SCH (02:04)
[2016-06-17 06:05] LABS: Basophils % (Auto) 0.3 % (0.0-1.8); Eosinophils % (Auto) 0.6 % (0.0-4.3); Hemoglobin 7.5 gm/dl (10.1-14.3); Mean Corpuscular HGB Conc 34 % (30-34); Mean Corpuscular Hemoglobin 37 pg (28-32); Mean Corpuscular Volume 110 fl (79-97); Platelet Count 229 K/mm3 (140-440); Red Blood Count 2.01 M/mm3 (3.65-5.03); Red Cell Distribution Width 15.1 % (13.2-15.2); White Blood Count 13.5 K/mm3 (4.5-11.0)
[2016-06-17 06:22] LABS: Alanine Aminotransferase 37 units/L (7-56); Albumin 2.6 g/dL (3.9-5); Albumin/Globulin Ratio 0.9 %; Alkaline Phosphatase 165 units/L (35-129); BUN/Creatinine Ratio 26.66; Bilirubin,Total 4.8 mg/dL (0.1-1.2); Blood Urea Nitrogen 8 mg/dL (7-17); Calcium 8.3 mg/dL (8.4-10.2); Carbon Dioxide 19 mmol/L (22-30); Chloride 100.8 mmol/L (98-107); Glucose 100 mg/dL (65-100); Sodium 137 mmol/L (137-145); Total Protein 5.5 g/dL (6.3-8.2)
[2016-06-17 06:23] LABS: Anion Gap 21 mmol/L
[2016-06-17 06:45] LABS: Hematocrit 23.9 % (30.3-42.9)
[2016-06-17] MEDS: LOVENOX SUB-Q SCH (09:18)
--- NOTE | 2016-06-17 09:19 | Gastroenterology Consultation ---
Addendum entered and electronically signed by CARMEN BAI NP 06/17/16 09:26: -Monitor H/H, noted to be decreased, patient denies any overt bleeding. ? volume Original Note: <CARMEN BAI - Last Filed: 06/17/16 09:20> History of Present Illness - Reason for Consult Consult date: 06/17/16 Chronic pancreatitis Requesting physician: ELAN GOLDSTEIN - History of Present Illness Ms Alva is a 45 y/o female admitted with abdominal pain in the epigastric area and weakness. She was recently seen in consult on 06/10/16 for similar complaints. She was felt to have ETOH Hepatitis. She states she has chronic abdominal pain and has been seen in our office last year and underwent EGD ( gastritis). Prior to the last admission , she was drinking two Vodka drinks per day. She reports she is no longer drinking ETOH. Her AST/ALK Phos have been elevated in office in the past. On admission she was found to have a TB of >5, which is decreased from previous admissions. She was also noted to have some GB sludge and possibly and early pancreatitis. She denies N/V or diarrhea. Her pain is located in the epigastric area. She has a hx of gastric bypass. She is requesting to eat "real food." Past History Past Medical History: diabetes, hypertension Past Surgical History: Other (gastric bypass) Social history: alcohol abuse Family history: denies: no significant family history Medications and Allergies Allergies Allergy/AdvReac Type Severity Reaction Status Date / Time No Known Allergies Allergy Verified 06/09/16 20:19 Home Medications Medication Instructions Recorded Confirmed Last Taken Type AtorvaSTATin [Lipitor] 20 mg PO DAILY 06/09/16 06/16/16 06/06/16 History Escitalopram Oxalate [Lexapro] 20 mg PO DAILY 06/09/16 06/16/16 06/06/16 History Folic Acid [Folvite] 1 mg PO QDAY 06/09/16 06/16/16 06/06/16 History Gabapentin [Neurontin] 100 mg PO Q8HR 06/09/16 06/16/16 06/06/16 History LORazepam [Ativan] 0.5 mg PO TID PRN 06/09/16 06/16/16 06/06/16 History Lisinopril [Zestril TAB] 20 mg PO QDAY 06/09/16 06/16/16 06/06/16 History Propranolol [Inderal] 10 mg PO BID 06/09/16 06/16/16 06/06/16 History Venlafaxine Xr [Effexor XR] 75 mg PO QDAY 06/09/16 06/16/16 06/06/16 History busPIRone [Buspar] 10 mg PO TID 06/09/16 06/16/16 06/06/16 History metFORMIN [Glucophage] 500 mg PO QDAY 06/09/16 06/16/16 06/06/16 History HYDROcodone/APAP 5-325 [[place] 1 each PO Q8H PRN #15 tablet 06/12/16 06/16/16 Unknown Rx 5/325] Active Meds: Active Medications Acetaminophen (Tylenol) 650 mg PO Q4H PRN PRN Reason: Pain MILD(1-3)/Fever >100.5/GALVEZ Bisacodyl (Dulcolax) 10 mg [place] QDAY PRN PRN Reason: Constipation unrelieved by [facility] Enoxaparin Sodium (Lovenox) 30 mg SUB-Q QDAY MARLEE Last Admin: 06/16/16 13:07 Dose: 30 mg Dextrose/Sodium Chloride (D5ns) 1,000 mls @ 100 mls/hr IV DIRECT MARLEE Last Admin: 06/17/16 02:04 Dose: 100 mls/hr Magnesium Hydroxide (Milk Of Magnesia) 30 ml PO Q4H PRN PRN Reason: Constipation Last Admin: 06/17/16 02:03 Dose: 30 ml Morphine Sulfate (Morphine) 2 mg IV Q4H PRN PRN Reason: Pain, Moderate (4-6) Last Admin: 06/16/16 18:51 Dose: 2 mg Ondansetron HCl (Zofran) 4 mg IV Q8H PRN PRN Reason: N/V unrelieved by Reglan Review of Systems - Review of Systems All systems: negative Constitutional: weakness Gastrointestinal: abdominal pain Exam - Constitutional Vital Signs: Temp Pulse Resp BP Pulse Ox 98.6 F 111 H 18 106/56 98 06/17/16 08:20 06/17/16 08:20 06/17/16 08:20 06/17/16 08:20 06/17/16 08:20 General appearance: no acute distress, obese - EENT Eyes: EOM intact ENT: hearing intact - Neck Neck: supple - Respiratory Respiratory: bilateral: CTA - Cardiovascular Rhythm: regular Heart Sounds: Present: S1 & S2 Extremities: pulses intact, No edema - Gastrointestinal General gastrointestinal: Present: soft, tender (mild TTP epigastric area), normal bowel sounds - Integumentary Integumentary: Present: warm, dry - Neurologic Neurological: alert and oriented x3 - Psychiatric Psychiatric: other (affect flat) - Labs CBC & Chem 7: 06/17/16 04:50 06/17/16 04:50 Lab Results: Laboratory Results - last 24 hr 06/16/16 06/16/16 06/16/16 15:25 15:25 17:37 WBC RBC Hgb Hct MCV MCH MCHC RDW Plt Count Lymph % (Auto) [place] % (Auto) Eos % (Auto) Baso % (Auto) Lymph # [place] # Eos # Baso # Seg Neutrophils % Seg Neutrophils # Sodium Potassium Chloride Carbon Dioxide Anion Gap BUN Creatinine Estimated GFR BUN/Creatinine Ratio Glucose POC Glucose 89 Calcium Magnesium 1.4 L Total Bilirubin AST ALT Alkaline Phosphatase Ammonia 39.0 Total Protein Albumin Albumin/Globulin Ratio 06/16/16 06/17/16 06/17/16 21:24 04:50 04:50 WBC 13.5 H RBC 2.01 L Hgb 7.5 L Hct 23.9 L MCV 110 H MCH 37 H MCHC 34 RDW 15.1 Plt Count 229 Lymph % (Auto) 13.8 [place] % (Auto) 9.1 H Eos % (Auto) 0.6 Baso % (Auto) 0.3 Lymph # 1.9 [place] # 1.2 H Eos # 0.1 Baso # 0.0 Seg Neutrophils % 76.2 H Seg Neutrophils # 10.3 H Sodium 137 Potassium 4.0 Chloride 100.8 Carbon Dioxide 19 L Anion Gap 21 BUN 8 Creatinine 0.3 L Estimated GFR > 60 BUN/Creatinine Ratio 26.66 Glucose 100 POC Glucose 94 Calcium 8.3 L Magnesium Total Bilirubin 4.8 H AST 150 H ALT 37 Alkaline Phosphatase 165 H Ammonia Total Protein 5.5 L D Albumin 2.6 L Albumin/Globulin Ratio 0.9 Assessment and Plan 1. Abdominal Pain -Feel this is resolving ETOH Hepatitis -TB is decreased from prior admission and continuing to decrease -Lipase 113, however, CT reports previous pancreatic edema resolved -WBC 13K -Continue to withhold ETOH -AST 150/ ALT WNL -CT with no acute process. (fatty liver, GB sludge) -Supportive care, patient is requesting to eat, start full liquid diet, and advance if tolerates well. <CONCEPCION HARGROVE Vickie - Last Filed: 06/18/16 08:48> Medications and Allergies Active Meds: Active Medications Acetaminophen (Tylenol) 650 mg PO Q4H PRN PRN Reason: Pain MILD(1-3)/Fever >100.5/GALVEZ Bisacodyl (Dulcolax) 10 mg WA QDAY PRN PRN Reason: Constipation unrelieved by [facility]OM Enoxaparin Sodium (Lovenox) 30 mg SUB-Q QDAY MARLEE Last Admin: 06/17/16 09:18 Dose: 30 mg Dextrose/Sodium Chloride (D5ns) 1,000 mls @ 100 mls/hr IV DIRECT MARLEE Last Admin: 06/18/16 00:58 Dose: 100 mls/hr Magnesium Hydroxide (Milk Of Magnesia) 30 ml PO Q4H PRN PRN Reason: Constipation Last Admin: 06/17/16 02:03 Dose: 30 ml Morphine Sulfate (Morphine) 2 mg IV Q4H PRN PRN Reason: Pain, Moderate (4-6) Last Admin: 06/18/16 02:22 Dose: 2 mg Ondansetron HCl (Zofran) 4 mg IV Q8H PRN PRN Reason: N/V unrelieved by Reglan Exam - Constitutional Vital Signs: Temp Pulse Resp BP Pulse Ox 99.8 F H 112 H 20 110/57 96 06/18/16 06:03 06/18/16 06:03 06/18/16 06:03 06/18/16 06:03 06/18/16 06:03 - Labs CBC & Chem 7: 06/17/16 04:50 06/17/16 04:50 Lab Results: Laboratory Results - last 24 hr 06/17/16 06/17/16 06/17/16 09:31 11:31 17:03 POC Glucose 114 H 103 144 H Assessment and Plan Patient seen and examined on 06/17. Agree with note by Linnette Bai. Patient re- admitted with lower extremity pain. Denies alcohol use since d/c. Liver enzymes improved for previous suspected diagnosis of alc hepatitis. Would cont supportive care/nutrition support, monitor cmp, advance diet as tolerated. Discussed rehab/AA with patient as well.
[2016-06-17] MEDS: MORPHINE IV PRN ×2 (09:29→20:02)
--- NOTE | 2016-06-17 16:39 | Progress Note ---
Assessment and Plan Assessment and plan: (1) Abdominal pain Current Visit: Yes Status: Acute Qualifiers: Abdominal location: generalized Qualified Code(s): R10.84 - Generalized abdominal pain Plan to address problem: Patient abdominal pain possibly secondary to pancreatitis. Patient CT scan of the abdomen and pelvis which showed hepatic steatosis. Cont pain management (2) Acute pancreatitis Current Visit: No Status: Acute Plan to address problem: cont clear liquid diet iv fluid, PRN nausea aand pain medication History Interval history: Patient seen and examined. Medical records and medication list reviewed. No acute event overnight noted by the RN. Patient c/o epigastric pain. Patient is started on clear liquid diet. Discussed plan of care at bedside with patient. Hospitalist Physical - Physical exam Narrative exam: GENERAL: AAF lying on bed appeared to be in no discomfort. HEENT: Normocephalic. Atraumatic. No conjunctival congestion or icterus. Patient has moist mucous membranes. NECK: Supple. Trachea midline. CHEST/LUNGS: Clear to auscultated bilaterally, breathing nonlabored. No wheezes crackles or rhonchi. HEART/CARDIOVASCULAR: Regular in rate and rhythm. S1 and S2 positive. ABDOMEN: Abdomen is soft, mild epigastric tenderness. Patient has normal bowel sounds. SKIN: There is no rash. Warm and dry. NEURO: No focal motor deficit. Follows command. MUSCULOSKELETAL: No joint effusion or tenderness. EXTRIMITY: No edema, no cyanosis or clubbing. PSYCH: Cooperative. - Constitutional Vitals: Temp Pulse Resp BP Pulse Ox 98.6 F 114 H 20 116/63 97 06/17/16 08:20 06/17/16 12:47 06/17/16 12:47 06/17/16 12:47 06/17/16 12:47 General appearance: Present: mild distress Results - Labs CBC & Chem 7: 06/18/16 17:21 06/17/16 04:50 Labs: Laboratory Last Values WBC 13.5 K/mm3 (4.5-11.0) H 06/17/16 04:50 RBC 2.01 M/mm3 (3.65-5.03) L 06/17/16 04:50 Hgb 7.5 gm/dl (10.1-14.3) L 06/17/16 04:50 Hct 23.9 % (30.3-42.9) L 06/17/16 04:50 MCV 110 fl (79-97) H 06/17/16 04:50 MCH 37 pg (28-32) H 06/17/16 04:50 MCHC 34 % (30-34) 06/17/16 04:50 RDW 15.1 % (13.2-15.2) 06/17/16 04:50 Plt Count 229 K/mm3 (140-440) 06/17/16 04:50 Lymph % (Auto) 13.8 % (13.4-35.0) 06/17/16 04:50 [place] % (Auto) 9.1 % (0.0-7.3) H 06/17/16 04:50 Eos % (Auto) 0.6 % (0.0-4.3) 06/17/16 04:50 Baso % (Auto) 0.3 % (0.0-1.8) 06/17/16 04:50 Lymph # 1.9 K/mm3 (1.2-5.4) 06/17/16 04:50 [place] # 1.2 K/mm3 (0.0-0.8) H 06/17/16 04:50 Eos # 0.1 K/mm3 (0.0-0.4) 06/17/16 04:50 Baso # 0.0 K/mm3 (0.0-0.1) 06/17/16 04:50 Seg Neutrophils % 76.2 % (40.0-70.0) H 06/17/16 04:50 Seg Neutrophils # 10.3 K/mm3 (1.8-7.7) H 06/17/16 04:50 PT 16.6 Sec. (12.2-14.9) H 06/16/16 09:43 INR 1.35 (0.87-1.13) H 06/16/16 09:43 APTT 39.9 Sec. (24.2-36.6) H 06/16/16 09:43 VBG pH 7.328 (7.320-7.420) 06/16/16 09:43 Sodium 137 mmol/L (137-145) 06/17/16 04:50 Potassium 4.0 mmol/L (3.6-5.0) 06/17/16 04:50 Chloride 100.8 mmol/L (98-107) 06/17/16 04:50 Carbon Dioxide 19 mmol/L (22-30) L 06/17/16 04:50 Anion Gap 21 mmol/L 06/17/16 04:50 BUN 8 mg/dL (7-17) 06/17/16 04:50 Creatinine 0.3 mg/dL (0.7-1.2) L 06/17/16 04:50 Estimated GFR > 60 ml/min 06/17/16 04:50 BUN/Creatinine Ratio 26.66 % 06/17/16 04:50 Glucose 100 mg/dL (65-100) 06/17/16 04:50 POC Glucose 114 (70-105) H 06/17/16 09:31 Lactic Acid 2.3 mmol/L (0.7-2.0) H* 06/16/16 09:43 Calcium 8.3 mg/dL (8.4-10.2) L 06/17/16 04:50 Magnesium 1.4 mg/dL (1.7-2.3) L 06/16/16 15:25 Total Bilirubin 4.8 mg/dL (0.1-1.2) H 06/17/16 04:50 AST 150 units/L (5-40) H 06/17/16 04:50 ALT 37 units/L (7-56) 06/17/16 04:50 Alkaline Phosphatase 165 units/L (35-129) H 06/17/16 04:50 Ammonia 39.0 umol/L (25-60) 06/16/16 15:25 NT-Pro-B Natriuret Pep 192.1 pg/mL (0-450) 06/16/16 09:43 Total Protein 5.5 g/dL (6.3-8.2) L D 06/17/16 04:50 Albumin 2.6 g/dL (3.9-5) L 06/17/16 04:50 Albumin/Globulin Ratio 0.9 % 06/17/16 04:50 Lipase 113 units/L (13-60) H 06/15/16 20:45 Urine Color Brown (Yellow) 06/16/16 Unknown Urine Turbidity Cloudy (Clear) 06/16/16 Unknown Urine pH 6.0 (5.0-7.0) 06/16/16 Unknown Ur Specific [place] 1.030 (1.003-1.030) 06/16/16 Unknown Urine Protein <30 mg dl mg/dL (Negative) 06/16/16 Unknown Urine Glucose (UA) Negative mg/dL (Negative) 06/16/16 Unknown Urine Ketones Trace mg/dL (Negative) 06/16/16 Unknown Urine Blood Negative (Negative) 06/16/16 Unknown Urine Nitrite Negative (Negative) 06/16/16 Unknown Urine Bilirubin Small (Negative) 06/16/16 Unknown Urine Ictotest Positive (Negative) 06/16/16 Unknown Urine Urobilinogen 0.2 mg/dL (<2.0) 06/16/16 Unknown Ur Leukocyte Esterase Negative (Negative) 06/16/16 Unknown Urine WBC (Auto) 7.0 /HPF (0.0-6.0) H 06/16/16 Unknown Urine RBC (Auto) 20.0 /HPF (0.0-6.0) 06/16/16 Unknown U Epithel Cells (Auto) 133.0 /HPF (0-13.0) H 06/16/16 Unknown Urine Bacteria (Auto) 1+ /HPF (Negative) 06/16/16 Unknown Urine Mucus 3+ /HPF 06/16/16 Unknown Urine Yeast ([place]) 2+ /HPF 06/16/16 Unknown Urine HCG, Qual Negative (Negative) 06/16/16 Unknown Ketones 25.8 mg/dL (0.2-2.8) H 06/16/16 09:43
[2016-06-18] MEDS: D5NS 1,000 ML IV SCH ×2 (00:58→12:45)
[2016-06-18] MEDS: MORPHINE IV PRN ×2 (02:22→12:45)
[2016-06-18] MEDS: LOVENOX SUB-Q SCH (09:34)
[2016-06-18] MEDS ORDERED: NORCO 5/325 PO PRN (16:35)
[2016-06-18 17:51] LABS: Hematocrit 23.5 % (30.3-42.9); Hemoglobin 7.8 gm/dl (10.1-14.3); Mean Corpuscular HGB Conc 33 % (30-34); Mean Corpuscular Hemoglobin 36 pg (28-32); Mean Corpuscular Volume 110 fl (79-97); Platelet Count 253 K/mm3 (140-440); Red Blood Count 2.14 M/mm3 (3.65-5.03); Red Cell Distribution Width 15.5 % (13.2-15.2); White Blood Count 14.5 K/mm3 (4.5-11.0)
--- NOTE | 2016-06-18 19:04 | Progress Note ---
Assessment and Plan Assessment and plan: (1) Abdominal pain Current Visit: Yes Status: Acute Qualifiers: Abdominal location: generalized Qualified Code(s): R10.84 - Generalized abdominal pain Plan to address problem: Patient abdominal pain possibly secondary to pancreatitis. Patient CT scan of the abdomen and pelvis which showed hepatic steatosis. improved (2) Acute pancreatitis Current Visit: No Status: Acute Plan to address problem: advance to regular iv fluid, PRN nausea and pain medication by mouth stop iv pain meds History Interval history: Patient seen and examined. Medical records and medication list reviewed. No acute event overnight noted by the RN. Patient denies any chest pain or difficulty breathing. Patient is tolerating liquid diet. States that she is unable to get up from bed as she feels too weak to do that Discussed plan of care at bedside with patient. Hospitalist Physical - Physical exam Narrative exam: GENERAL: AAF lying on bed appeared to be in no discomfort. HEENT: Normocephalic. Atraumatic. No conjunctival congestion or icterus. Patient has moist mucous membranes. NECK: Supple. Trachea midline. CHEST/LUNGS: Clear to auscultated bilaterally, breathing nonlabored. No wheezes crackles or rhonchi. HEART/CARDIOVASCULAR: Regular in rate and rhythm. S1 and S2 positive. ABDOMEN: Abdomen is soft, nontender. Patient has normal bowel sounds. SKIN: There is no rash. Warm and dry. NEURO: No focal motor deficit. Follows command. MUSCULOSKELETAL: No joint effusion or tenderness. EXTRIMITY: No edema, no cyanosis or clubbing. PSYCH: Cooperative. - Constitutional Vitals: Temp Pulse Resp BP Pulse Ox 98.2 F 115 H 18 116/57 98 06/18/16 17:57 06/18/16 17:57 06/18/16 17:57 06/18/16 17:57 06/18/16 17:57 General appearance: Present: mild distress Results - Labs CBC & Chem 7: 06/18/16 17:21 06/17/16 04:50 Labs: Laboratory Last Values WBC 14.5 K/mm3 (4.5-11.0) H 06/18/16 17:21 RBC 2.14 M/mm3 (3.65-5.03) L 06/18/16 17:21 Hgb 7.8 gm/dl (10.1-14.3) L 06/18/16 17:21 Hct 23.5 % (30.3-42.9) L 06/18/16 17:21 MCV 110 fl (79-97) H 06/18/16 17:21 MCH 36 pg (28-32) H 06/18/16 17:21 MCHC 33 % (30-34) 06/18/16 17:21 RDW 15.5 % (13.2-15.2) H 06/18/16 17:21 Plt Count 253 K/mm3 (140-440) 06/18/16 17:21 Lymph % (Auto) 13.8 % (13.4-35.0) 06/17/16 04:50 [place] % (Auto) 9.1 % (0.0-7.3) H 06/17/16 04:50 Eos % (Auto) 0.6 % (0.0-4.3) 06/17/16 04:50 Baso % (Auto) 0.3 % (0.0-1.8) 06/17/16 04:50 Lymph # 1.9 K/mm3 (1.2-5.4) 06/17/16 04:50 [place] # 1.2 K/mm3 (0.0-0.8) H 06/17/16 04:50 Eos # 0.1 K/mm3 (0.0-0.4) 06/17/16 04:50 Baso # 0.0 K/mm3 (0.0-0.1) 06/17/16 04:50 Seg Neutrophils % 76.2 % (40.0-70.0) H 06/17/16 04:50 Seg Neutrophils # 10.3 K/mm3 (1.8-7.7) H 06/17/16 04:50 PT 16.6 Sec. (12.2-14.9) H 06/16/16 09:43 INR 1.35 (0.87-1.13) H 06/16/16 09:43 APTT 39.9 Sec. (24.2-36.6) H 06/16/16 09:43 VBG pH 7.328 (7.320-7.420) 06/16/16 09:43 Sodium 137 mmol/L (137-145) 06/17/16 04:50 Potassium 4.0 mmol/L (3.6-5.0) 06/17/16 04:50 Chloride 100.8 mmol/L (98-107) 06/17/16 04:50 Carbon Dioxide 19 mmol/L (22-30) L 06/17/16 04:50 Anion Gap 21 mmol/L 06/17/16 04:50 BUN 8 mg/dL (7-17) 06/17/16 04:50 Creatinine 0.3 mg/dL (0.7-1.2) L 06/17/16 04:50 Estimated GFR > 60 ml/min 06/17/16 04:50 BUN/Creatinine Ratio 26.66 % 06/17/16 04:50 Glucose 100 mg/dL (65-100) 06/17/16 04:50 POC Glucose 119 (70-105) H 06/18/16 13:01 Lactic Acid 2.3 mmol/L (0.7-2.0) H* 06/16/16 09:43 Calcium 8.3 mg/dL (8.4-10.2) L 06/17/16 04:50 Magnesium 1.4 mg/dL (1.7-2.3) L 06/16/16 15:25 Total Bilirubin 4.8 mg/dL (0.1-1.2) H 06/17/16 04:50 AST 150 units/L (5-40) H 06/17/16 04:50 ALT 37 units/L (7-56) 06/17/16 04:50 Alkaline Phosphatase 165 units/L (35-129) H 06/17/16 04:50 Ammonia 39.0 umol/L (25-60) 06/16/16 15:25 NT-Pro-B Natriuret Pep 192.1 pg/mL (0-450) 06/16/16 09:43 Total Protein 5.5 g/dL (6.3-8.2) L D 06/17/16 04:50 Albumin 2.6 g/dL (3.9-5) L 06/17/16 04:50 Albumin/Globulin Ratio 0.9 % 06/17/16 04:50 Lipase 113 units/L (13-60) H 06/15/16 20:45 Urine Color Brown (Yellow) 06/16/16 Unknown Urine Turbidity Cloudy (Clear) 06/16/16 Unknown Urine pH 6.0 (5.0-7.0) 06/16/16 Unknown Ur Specific [place] 1.030 (1.003-1.030) 06/16/16 Unknown Urine Protein <30 mg dl mg/dL (Negative) 06/16/16 Unknown Urine Glucose (UA) Negative mg/dL (Negative) 06/16/16 Unknown Urine Ketones Trace mg/dL (Negative) 06/16/16 Unknown Urine Blood Negative (Negative) 06/16/16 Unknown Urine Nitrite Negative (Negative) 06/16/16 Unknown Urine Bilirubin Small (Negative) 06/16/16 Unknown Urine Ictotest Positive (Negative) 06/16/16 Unknown Urine Urobilinogen 0.2 mg/dL (<2.0) 06/16/16 Unknown Ur Leukocyte Esterase Negative (Negative) 06/16/16 Unknown Urine WBC (Auto) 7.0 /HPF (0.0-6.0) H 06/16/16 Unknown Urine RBC (Auto) 20.0 /HPF (0.0-6.0) 06/16/16 Unknown U Epithel Cells (Auto) 133.0 /HPF (0-13.0) H 06/16/16 Unknown Urine Bacteria (Auto) 1+ /HPF (Negative) 06/16/16 Unknown Urine Mucus 3+ /HPF 06/16/16 Unknown Urine Yeast (Budding) 2+ /HPF 06/16/16 Unknown Urine HCG, Qual Negative (Negative) 06/16/16 Unknown Ketones 25.8 mg/dL (0.2-2.8) H 06/16/16 09:43
[2016-06-19] MEDS: LOVENOX SUB-Q SCH (11:02)
--- NOTE | 2016-06-19 11:31 | Discharge Summary ---
Providers - Providers Date of Admission: 06/16/16 12:05 Date of discharge: 06/19/16 Attending physician: GRANT PENNINGTON Primary care physician: LATIN TEACHER Hospitalization Condition: Undetermined Hospital course: 45-year-old female with h/o alcohol abuse presented to the hospital complaining of abdominal pain nausea and vomiting. She had Ct scan of the abdomen and pelvis which showed hepatic steatosis and no other inflammatory process. She was placed on aggressive hydration with IV fluid, abdominal pain managed with iv pain meds and as needed nausea medication. Her nausea vomiting improved and abdominal pain resolved. She was able to tolerate diet. She was discharged home in stable condition. Diacharge diagnosis: (1) Abdominal pain Current Visit: Yes Status: Acute Qualifiers: Abdominal location: generalized Qualified Code(s): R10.84 - Generalized abdominal pain Plan to address problem: Patient abdominal pain possibly secondary to pancreatitis. Patient CT scan of the abdomen and pelvis which showed hepatic steatosis. (2) Acute pancreatitis Current Visit: No Status: Acute Plan to address problem: Due to alcohol abuse resolved with medical management counselled for alcohol cessation Disposition: DISCHARGED TO HOME OR SELFCARE Time spent for discharge: 32 minutes Core Measure Documentation - Palliative Care Palliative Care/ Comfort Measures: Not Applicable - Core Measures Any of the following diagnoses?: none Exam - Physical Exam Narrative exam: GENERAL: AAF lying on bed appeared to be in no discomfort. HEENT: Normocephalic. Atraumatic. No conjunctival congestion or icterus. Patient has moist mucous membranes. NECK: Supple. Trachea midline. CHEST/LUNGS: Clear to auscultated bilaterally, breathing nonlabored. No wheezes crackles or rhonchi. HEART/CARDIOVASCULAR: Regular in rate and rhythm. S1 and S2 positive. ABDOMEN: Abdomen is soft, nontender. Patient has normal bowel sounds. SKIN: There is no rash. Warm and dry. NEURO: No focal motor deficit. Follows command. MUSCULOSKELETAL: No joint effusion or tenderness. EXTRIMITY: No edema, no cyanosis or clubbing. PSYCH: Cooperative. - Constitutional Vitals: Temp Pulse Resp BP Pulse Ox 98.9 F 112 H 18 118/58 95 06/19/16 08:37 06/19/16 08:37 06/19/16 08:37 06/19/16 08:37 06/19/16 08:37 Plan Activity: advance as tolerated Weight Bearing Status: Weight Bear as Tolerated Diet: low cholesterol, low salt Follow up with: PRIMARY CARE, [Primary Care Provider] - 3-5 Days Forms: Work/School Release Form
[2016-06-19 12:26] VITALS: BP 119/70
== END 2016-06-19 18:16 | disposition home or self-care (01) | DRG 440 ==
LOC: ED 19:45 → 3A 06-16 12:05 → 4A 06-16 14:28
PROVIDERS: ADMIT Internal Medicine; ATTEND Internal Medicine
DX: K85.90 Acute pancreatitis without necrosis or infection, unspecified (principal); D72.829 Elevated white blood cell count, unspecified; I10 Essential (primary) hypertension; E11.9 Type 2 diabetes mellitus without complications; M19.90 Unspecified osteoarthritis, unspecified site; E78.5 Hyperlipidemia, unspecified; F32.9 Major depressive disorder, single episode, unspecified; F10.10 Alcohol abuse, uncomplicated; Y90.9 Presence of alcohol in blood, level not specified; K76.9 Liver disease, unspecified; K76.0 Fatty (change of) liver, not elsewhere classified; Z79.899 Other long term (current) drug therapy; Z98.84 Bariatric surgery status
CPT/HCPCS: 36415; 71010; 74177; 80053; 81001; 81025; 82010; 82140; 82805; 82962; 83690; 83735; 83880; 85025; 85027; 85610; 85730; 87040; 96366; 96368; 96372; 96375; 96376; C9113; J1650; J2270; J2405; J2543; J3411; J7030; J7042; Q9967